=== PATIENT | male | born 1970 | race Caucasian/White ===

== ENCOUNTER 2017-12-17 14:06 | Inpatient (IN) | payer MEDICAID ==
[~2017-12-17] VITALS: Ht 175.3 cm; Wt 78.6 kg
[2017-12-17 14:23] LABS: BASOPHILS 0.2 % (0-2); EOSINOPHILS 0.5 % (0-7); HEMATOCRIT 43.2 % (42.0-54.0); HEMOGLOBIN 15.3 g/dL (13.5-17.5); IMMATURE GRANULOCYTES 0.3 % (0-5); LYMPHOCYTES 33.3 % (15-50); MCH 34.4 pg (26.0-34.0); MCHC 35.4 g/dL (31.0-37.0); MCV 97.1 fL (80.0-100.0); MEAN PLATELET VOLUME 9.2 fL (7.4-10.4); MONOCYTES 8.6 % (2-11); NEUTROPHILS 57.1 % (40-80); PLATELET COUNT 356 10x3/uL (130-400); RBC 4.45 10x6/uL (4.20-6.10); RDW 12.5 % (11.5-14.5); WBC 18.5 10x3/uL (4.8-10.8)
[2017-12-17 14:41] LABS: ALBUMIN 3.7 g/dL (3.4-5.0); ALKALINE PHOSPHATASE 69 U/L (46-116); ALT (SGPT) 23 U/L (10-68); CALC OSMOLALITY 270 mosm/kg (275-300); CALCIUM 8.9 mg/dL (8.5-10.1); CARBON DIOXIDE 27.4 mmol/L (21.0-32.0); CHLORIDE - SERUM 99 mmol/L (98-107); GLUCOSE 126 mg/dL (74-106); POTASSIUM - SERUM 3.8 mmol/L (3.5-5.1); PROTEIN - SERUM 7.5 g/dL (6.4-8.2); SODIUM 135 mmol/L (136-145); UREA NITROGEN 10 mg/dL (7-18); eGFR NON AFRICAN AMERICAN 84 mL/min (90-120)
[2017-12-17 14:57] LABS: CHOLESTEROL, TOTAL 148 mg/dL (0-200); CKMB 0.6 U/L (0.0-3.6); CREATINE KINASE 56 UL (21-232); HDL CHOLESTEROL 49 mg/dL (32-96); LDL CHOLESTEROL 86 mg/dL (0-100); LDL-HDL RATIO 1.8 ratio (1.5-3.5); TRIGLYCERIDE 67 mg/dL (30-200); TROPONIN-I < 0.017 ng/mL (0.000-0.060)
[2017-12-17 15:38] LABS: APTT 34.6 SECONDS (22.8-39.4); INR 1.03 (0.85-1.17); PROTIME 13.1 SECONDS (11.6-15.0)
[2017-12-17 15:39] LABS: D-DIMER-QUANTITATIVE < 0.27 ug/mLFEU (0.20-0.54)
[2017-12-17 21:35] VITALS: BP 117/68; BMI 25.9
[2017-12-17 23:49] VITALS: BP 117/68
[2017-12-18 04:20] VITALS: BP 111/60
[2017-12-18 05:07] LABS: BASOPHILS 0.2 % (0-2); EOSINOPHILS 1.1 % (0-7); HEMATOCRIT 37.2 % (42.0-54.0); HEMOGLOBIN 12.7 g/dL (13.5-17.5); IMMATURE GRANULOCYTES 0.2 % (0-5); LYMPHOCYTES 31.5 % (15-50); MCH 33.4 pg (26.0-34.0); MCHC 34.1 g/dL (31.0-37.0); MCV 97.9 fL (80.0-100.0); MEAN PLATELET VOLUME 9.6 fL (7.4-10.4); MONOCYTES 14.1 % (2-11); NEUTROPHILS 52.9 % (40-80); PLATELET COUNT 350 10x3/uL (130-400); RDW 12.6 % (11.5-14.5); WBC 16.4 10x3/uL (4.8-10.8)
[2017-12-18 05:21] LABS: ALBUMIN 2.8 g/dL (3.4-5.0); ALKALINE PHOSPHATASE 64 U/L (46-116); ALT (SGPT) 23 U/L (10-68); BILIRUBIN - TOTAL 0.46 mg/dL (0.2-1.3); CALCIUM 8.1 mg/dL (8.5-10.1); CARBON DIOXIDE 23.8 mmol/L (21.0-32.0); CHLORIDE - SERUM 106 mmol/L (98-107); GLUCOSE 100 mg/dL (74-106); POTASSIUM - SERUM 3.7 mmol/L (3.5-5.1); PROTEIN - SERUM 6.1 g/dL (6.4-8.2); SODIUM 141 mmol/L (136-145); eGFR NON AFRICAN AMERICAN 84 mL/min (90-120)
[2017-12-18 05:31] LABS: CALC OSMOLALITY 281 mosm/kg (275-300); UREA NITROGEN 16 mg/dL (7-18)
[2017-12-18 08:00] VITALS: BP 111/64
[2017-12-18 11:54] VITALS: BP 117/68
[2017-12-18 14:45] LABS: CKMB 0.5 U/L (0.0-3.6); CREATINE KINASE 37 UL (21-232); PRO BNP 210 pg/mL (0-125)
[2017-12-18 14:54] LABS: TROPONIN-I < 0.017 ng/mL (0.000-0.060)
[2017-12-18 15:31] VITALS: BP 117/81
[2017-12-18 20:00] VITALS: BP 123/70
[2017-12-18 20:23] LABS: CKMB 0.5 U/L (0.0-3.6); CREATINE KINASE 38 UL (21-232)
[2017-12-18 20:24] LABS: TROPONIN-I < 0.017 ng/mL (0.000-0.060)
[2017-12-19] VITALS (7 sets, daily range): BP systolic 93–172; BP diastolic 53–85
[2017-12-19 01:29] LABS: CKMB 0.6 U/L (0.0-3.6); CREATINE KINASE 45 UL (21-232); TROPONIN-I < 0.017 ng/mL (0.000-0.060)
[2017-12-19 06:15] LABS: BASOPHILS 0.2 % (0-2); HEMATOCRIT 33.7 % (42.0-54.0); HEMOGLOBIN 11.5 g/dL (13.5-17.5); IMMATURE GRANULOCYTES 0.2 % (0-5); LYMPHOCYTES 33.3 % (15-50); MCH 33.3 pg (26.0-34.0); MCHC 34.1 g/dL (31.0-37.0); MCV 97.7 fL (80.0-100.0); MEAN PLATELET VOLUME 9.1 fL (7.4-10.4); MONOCYTES 10.5 % (2-11); NEUTROPHILS 53.8 % (40-80); PLATELET COUNT 324 10x3/uL (130-400); RBC 3.45 10x6/uL (4.20-6.10); RDW 12.6 % (11.5-14.5); WBC 12.8 10x3/uL (4.8-10.8)
[2017-12-19 06:46] LABS: % SATURATION 24 % (15-55); IRON 36 ug/dl (35-150); TOTAL IRON BIND CAPACITY 146 ug/dl (260-445); UNSAT IRON BIND CAPACITY 110 ug/dl (150-375)
[2017-12-19 06:58] LABS: ALBUMIN 2.6 g/dL (3.4-5.0); ALKALINE PHOSPHATASE 53 U/L (46-116); ALT (SGPT) 24 U/L (10-68); BILIRUBIN - TOTAL 0.53 mg/dL (0.2-1.3); CALC OSMOLALITY 282 mosm/kg (275-300); CALCIUM 7.8 mg/dL (8.5-10.1); CARBON DIOXIDE 25.1 mmol/L (21.0-32.0); CHLORIDE - SERUM 108 mmol/L (98-107); CREATININE - SERUM 0.8 mg/dL (0.6-1.3); FERRITIN 251 ng/mL (3-244); GLUCOSE 104 mg/dL (74-106); POTASSIUM - SERUM 3.6 mmol/L (3.5-5.1); PROTEIN - SERUM 5.8 g/dL (6.4-8.2); SODIUM 143 mmol/L (136-145); UREA NITROGEN 7 mg/dL (7-18); eGFR NON AFRICAN AMERICAN > 90 mL/min (90-120)
[2017-12-20 04:05] VITALS: BP 106/54
[2017-12-20 04:33] LABS: BASOPHILS 0.4 % (0-2); EOSINOPHILS 5.2 % (0-7); HEMATOCRIT 32.6 % (42.0-54.0); HEMOGLOBIN 10.9 g/dL (13.5-17.5); IMMATURE GRANULOCYTES 0.1 % (0-5); MCH 32.8 pg (26.0-34.0); MCHC 33.4 g/dL (31.0-37.0); MCV 98.2 fL (80.0-100.0); MEAN PLATELET VOLUME 9.1 fL (7.4-10.4); MONOCYTES 10.3 % (2-11); PLATELET COUNT 338 10x3/uL (130-400); RBC 3.32 10x6/uL (4.20-6.10); RDW 12.8 % (11.5-14.5); WBC 9.9 10x3/uL (4.8-10.8)
[2017-12-20 04:50] LABS: ALBUMIN 2.4 g/dL (3.4-5.0); ALKALINE PHOSPHATASE 53 U/L (46-116); CALC OSMOLALITY 290 mosm/kg (275-300); CHLORIDE - SERUM 112 mmol/L (98-107); CREATININE - SERUM 0.8 mg/dL (0.6-1.3); GLUCOSE 136 mg/dL (74-106); POTASSIUM - SERUM 3.1 mmol/L (3.5-5.1); PROTEIN - SERUM 5.4 g/dL (6.4-8.2); SODIUM 146 mmol/L (136-145); UREA NITROGEN 6 mg/dL (7-18); eGFR NON AFRICAN AMERICAN > 90 mL/min (90-120)
[2017-12-20 04:51] LABS: ALT (SGPT) 31 U/L (10-68)
[2017-12-20 07:54] VITALS: BP 121/67
[2017-12-20 16:26] VITALS: BP 137/78
[2017-12-20 21:52] VITALS: BP 130/76
[2017-12-21] VITALS (8 sets, daily range): BP systolic 103–134; BP diastolic 52–74
[2017-12-21 04:37] LABS: BASOPHILS 0.5 % (0-2); EOSINOPHILS 7.4 % (0-7); HEMATOCRIT 34.7 % (42.0-54.0); HEMOGLOBIN 11.6 g/dL (13.5-17.5); IMMATURE GRANULOCYTES 0.1 % (0-5); LYMPHOCYTES 38.9 % (15-50); MCHC 33.4 g/dL (31.0-37.0); MCV 98.9 fL (80.0-100.0); MEAN PLATELET VOLUME 9.1 fL (7.4-10.4); MONOCYTES 8.9 % (2-11); NEUTROPHILS 44.2 % (40-80); PLATELET COUNT 401 10x3/uL (130-400); RBC 3.51 10x6/uL (4.20-6.10); RDW 13.1 % (11.5-14.5); WBC 8.9 10x3/uL (4.8-10.8)
[2017-12-21 04:45] LABS: INR 1.13 (0.85-1.17)
[2017-12-21 04:46] LABS: APTT 38.7 SECONDS (22.8-39.4)
[2017-12-21 05:00] LABS: ALBUMIN 2.5 g/dL (3.4-5.0); ALKALINE PHOSPHATASE 53 U/L (46-116); ALT (SGPT) 33 U/L (10-68); BILIRUBIN - TOTAL 0.37 mg/dL (0.2-1.3); CALC OSMOLALITY 284 mosm/kg (275-300); CALCIUM 7.9 mg/dL (8.5-10.1); CARBON DIOXIDE 25.1 mmol/L (21.0-32.0); CHLORIDE - SERUM 109 mmol/L (98-107); GLUCOSE 105 mg/dL (74-106); POTASSIUM - SERUM 3.6 mmol/L (3.5-5.1); PROTEIN - SERUM 5.7 g/dL (6.4-8.2); SODIUM 144 mmol/L (136-145); UREA NITROGEN 6 mg/dL (7-18); eGFR NON AFRICAN AMERICAN 84 mL/min (90-120)
[2017-12-22] VITALS (7 sets, daily range): BP systolic 111–148; BP diastolic 68–85
[2017-12-22 06:26] LABS: BASOPHILS 0.1 % (0-2); EOSINOPHILS 0.1 % (0-7); HEMATOCRIT 36.1 % (42.0-54.0); HEMOGLOBIN 11.9 g/dL (13.5-17.5); IMMATURE GRANULOCYTES 0.1 % (0-5); LYMPHOCYTES 15.2 % (15-50); MCH 33.1 pg (26.0-34.0); MCV 100.3 fL (80.0-100.0); MEAN PLATELET VOLUME 8.9 fL (7.4-10.4); MONOCYTES 2.5 % (2-11); PLATELET COUNT 440 10x3/uL (130-400)
[2017-12-22 06:27] LABS: WBC 14.9 10x3/uL (4.8-10.8)
[2017-12-22 07:03] LABS: ALBUMIN 2.6 g/dL (3.4-5.0); ALKALINE PHOSPHATASE 60 U/L (46-116); ALT (SGPT) 31 U/L (10-68); BILIRUBIN - TOTAL 0.22 mg/dL (0.2-1.3); CALC OSMOLALITY 286 mosm/kg (275-300); CALCIUM 8.3 mg/dL (8.5-10.1); CARBON DIOXIDE 26.5 mmol/L (21.0-32.0); CHLORIDE - SERUM 107 mmol/L (98-107); CREATININE - SERUM 0.9 mg/dL (0.6-1.3); GLUCOSE 152 mg/dL (74-106); POTASSIUM - SERUM 3.8 mmol/L (3.5-5.1); PROTEIN - SERUM 5.8 g/dL (6.4-8.2); SODIUM 143 mmol/L (136-145); eGFR NON AFRICAN AMERICAN > 90 mL/min (90-120)
[2017-12-22 07:05] LABS: UREA NITROGEN 11 mg/dL (7-18)
[2017-12-23 04:30] VITALS: BP 112/69
[2017-12-23 05:37] LABS: BASOPHILS 0.3 % (0-2); EOSINOPHILS 8.7 % (0-7); HEMATOCRIT 34.3 % (42.0-54.0); HEMOGLOBIN 11.4 g/dL (13.5-17.5); IMMATURE GRANULOCYTES 0.3 % (0-5); LYMPHOCYTES 39.6 % (15-50); MCH 32.9 pg (26.0-34.0); MCHC 33.2 g/dL (31.0-37.0); MCV 99.1 fL (80.0-100.0); MEAN PLATELET VOLUME 9.1 fL (7.4-10.4); NEUTROPHILS 44.1 % (40-80); PLATELET COUNT 445 10x3/uL (130-400); RBC 3.46 10x6/uL (4.20-6.10); RDW 13.3 % (11.5-14.5)
[2017-12-23 05:59] LABS: WBC 10.8 10x3/uL (4.8-10.8)
[2017-12-23 06:09] LABS: ALBUMIN 2.6 g/dL (3.4-5.0); ALKALINE PHOSPHATASE 53 U/L (46-116); ALT (SGPT) 33 U/L (10-68); CALC OSMOLALITY 285 mosm/kg (275-300); CARBON DIOXIDE 27.1 mmol/L (21.0-32.0); CHLORIDE - SERUM 107 mmol/L (98-107); CREATININE - SERUM 0.9 mg/dL (0.6-1.3); POTASSIUM - SERUM 3.6 mmol/L (3.5-5.1); PROTEIN - SERUM 5.7 g/dL (6.4-8.2); SODIUM 144 mmol/L (136-145); UREA NITROGEN 11 mg/dL (7-18); eGFR NON AFRICAN AMERICAN > 90 mL/min (90-120)
[2017-12-23 06:18] LABS: GLUCOSE 99 mg/dL (74-106)
[2017-12-23 08:04] LABS: APPEARANCE CLEAR (CLEAR); BILIRUBIN NEGATIVE (NEGATIVE); COLOR YELLOW (YELLOW); GLUCOSE NEGATIVE (NEGATIVE); KETONE NEGATIVE (NEGATIVE); NITRITE NEGATIVE (NEGATIVE); PROTEIN NEGATIVE (NEGATIVE); SPECIFIC GRAVITY 1.015 (1.005-1.020); UROBILINOGEN NORMAL (NORMAL)
[2017-12-23 08:18] VITALS: BP 121/75
[2017-12-23 12:44] VITALS: BP 119/72
[2017-12-23 18:10] LABS: AFB SPECIMEN PROCESSING Concentration (())
[2017-12-23 19:24] VITALS: Ht 175.3 cm; Wt 78.6 kg
[2017-12-23 20:58] VITALS: BP 153/84
[2017-12-24 05:03] VITALS: BP 134/48
[2017-12-24 08:16] VITALS: BP 119/71
[2017-12-24 12:12] VITALS: BP 121/75
[2017-12-24 13:18] LABS: FUNGUS STAIN Final report (())
[2017-12-24 20:02] VITALS: BP 108/67
[2017-12-25 00:27] VITALS: BP 115/61
[2017-12-25 04:17] VITALS: BP 122/73
[2017-12-25 05:12] LABS: BASOPHILS 0.2 % (0-2); EOSINOPHILS 6.1 % (0-7); HEMATOCRIT 35.4 % (42.0-54.0); HEMOGLOBIN 11.7 g/dL (13.5-17.5); IMMATURE GRANULOCYTES 0.7 % (0-5); LYMPHOCYTES 32.9 % (15-50); MCH 32.7 pg (26.0-34.0); MCHC 33.1 g/dL (31.0-37.0); MCV 98.9 fL (80.0-100.0); MEAN PLATELET VOLUME 8.7 fL (7.4-10.4); MONOCYTES 7.3 % (2-11); NEUTROPHILS 52.8 % (40-80); PLATELET COUNT 466 10x3/uL (130-400); RBC 3.58 10x6/uL (4.20-6.10); RDW 13.1 % (11.5-14.5); WBC 13.9 10x3/uL (4.8-10.8)
[2017-12-25 05:36] LABS: CALC OSMOLALITY 285 mosm/kg (275-300); CALCIUM 8.3 mg/dL (8.5-10.1); CARBON DIOXIDE 26.4 mmol/L (21.0-32.0); CHLORIDE - SERUM 107 mmol/L (98-107); CREATININE - SERUM 0.8 mg/dL (0.6-1.3); GLUCOSE 124 mg/dL (74-106); POTASSIUM - SERUM 3.6 mmol/L (3.5-5.1); SODIUM 143 mmol/L (136-145); UREA NITROGEN 13 mg/dL (7-18); eGFR NON AFRICAN AMERICAN > 90 mL/min (90-120)
[2017-12-25 08:10] VITALS: BP 127/77
[2017-12-25 09:12] LABS: IMMUNOGLOBULIN E 94 IU/mL (0-100)
[2017-12-25 12:08] VITALS: BP 120/71
[2017-12-25] MEDS ORDERED: NICODERM C1 PATCH .1 TRANSDERM (14:08)
[2017-12-25] MEDS ORDERED: PULMICORT0.5 MG/21 UPD (14:08)
[2017-12-25] MEDS ORDERED: PREDNISONE20 MG PO (14:09)
[2017-12-25] MEDS ORDERED: ADVAIR 250/501 DISK INH (14:09)
[2017-12-25 16:17] VITALS: BP 118/72
[2018-01-19 10:19] LABS: FUNGUS MYCOLOGY CULTURE Final report (())
[2018-02-14 18:09] LABS: ACID FAST CULTURE Negative (()); ACID FAST SMEAR Negative (())
== END 2017-12-25 17:00 | disposition home or self-care (01) | DRG 180 ==
LOC: D.ER 14:06 → D.EDHOLD 19:54 → D.MS 19:54
PROVIDERS: Family Medicine; Internal Medicine Nephrology; Internal Medicine Pulmonary Disease
PROC: 0B998ZX Drainage of Lingula Bronchus, Via Natural or Artificial Opening Endoscopic, Diagnostic (ICD-10-PCS; 2017-12-21)
PROC: 0BD98ZX Extraction of Lingula Bronchus, Via Natural or Artificial Opening Endoscopic, Diagnostic (ICD-10-PCS; principal; 2017-12-21 11:00)
DX: C34.12 Malignant neoplasm of upper lobe, left bronchus or lung (principal); J18.1 Lobar pneumonia, unspecified organism; E87.1 Hypo-osmolality and hyponatremia; F17.203 Nicotine dependence unspecified, with withdrawal; C79.51 Secondary malignant neoplasm of bone; R91.1 Solitary pulmonary nodule; J43.9 Emphysema, unspecified; R09.1 Pleurisy; J30.9 Allergic rhinitis, unspecified; Z77.090 Contact with and (suspected) exposure to asbestos; K21.9 Gastro-esophageal reflux disease without esophagitis; D64.9 Anemia, unspecified; E83.51 Hypocalcemia; I95.9 Hypotension, unspecified; E87.6 Hypokalemia; R07.9 Chest pain, unspecified; D72.1 Eosinophilia; L27.0 Generalized skin eruption due to drugs and medicaments taken internally; T48.3X5A Adverse effect of antitussives, initial encounter; T46.1X5A Adverse effect of calcium-channel blockers, initial encounter; T36.0X5A Adverse effect of penicillins, initial encounter

== ENCOUNTER → 2018-02-17 08:38 | Outpatient (CLI) | payer MEDICAID ==
[2017-12-23 19:24] VITALS: BMI 25.9
[~2018-02-17 08:38] MED LIST: ADVAIR 250/501 DISK INH; NICODERM C1 PATCH .1 TRANSDERM; PREDNISONE20 MG PO; PULMICORT0.5 MG/21 UPD
== END | disposition home or self-care (01) ==
LOC: D.RT 08:38
DX: C34.90 Malignant neoplasm of unspecified part of unspecified bronchus or lung (principal)

== ENCOUNTER 2020-02-23 14:08 | Outpatient (CLI) | payer MEDICAID ==
[2017-12-23 19:24] VITALS: BMI 25.9
--- NOTE | 2020-02-23 16:39 | NUR ---
PICC PLACED. D/C`D HOME VIA WHEELCHAIR WITH FAMILY. NO CONCERNS.
== END 2020-02-23 17:00 | disposition home or self-care (01) ==
LOC: D.OPS 14:08 → D.MS 16:00 → UNDOADMIN 16:00 → D.MS 16:40 → D.OPS 17:00 → EDSTATUS 17:26
PROVIDERS: ATTEND Family Medicine
DX: Z85.110 Personal history of malignant carcinoid tumor of bronchus and lung (principal)

== ENCOUNTER 2020-02-25 20:20 | Inpatient (IN) | payer MEDICAID ==
[~2020-02-25] VITALS: Ht 175.3 cm; Wt 72.0 kg
--- NOTE | ~2020-02-25 | EC ---
PATIENT:KENNEDY MCCRARY DATE OF SERVICE: 02/26/20 SEX: M MEDICAL RECORD: [id number] DATE OF : [birth year] LOCATION:[place] [address] AGE OF PATIENT: 49 ADMISSION DATE: 02/26/20 REFERRING PHYSICIAN: INTERPRETING PHYSICIAN: ROMEO ERWIN MD ECHOCARDIOGRAM REPORT ECHO CHARGES 4 ECHO COMPLETE Date: 03/01/20 CLINICAL DIAGNOSIS: ATRIAL FIB ECHOCARDIOGRAPHIC MEASUREMENTS (adult normal given) AC root (d.<3.7cm) 3.9 cm LV Septum d (<1.2 cm> 1.5 cm Valve Excursion 1.5 cm LV Septum (systole) 1.6 cm Left Atria (s.<4.0cm> 3.4 cm LVPW d(<1.2cm) 1.8 cm RV (d.<2.3cm) 3.5 cm LVPW (sytole) 2.0 cm LV diastole(<5.6CM) 5.1 cm MV E-F(>70mm/sec) cm LV systole 3.5 cm LVOT Diameter 2.0 cm MV exc.(>10mm) 1.4 cm Est.ejection fraction (50-75%) % DOPPLER: LVIT cm/sec A 51.0 cm/sec E 80.0 cm/sec LA cm/sec RVSP 17 mmHg LVOT 75.0 cm/sec AOP1/2T m/s Asc. Ao 119 cm/sec RVOT 73 cm/sec RA cm/sec PA 133 cm/sec AV Gradient Peak 5.65 mmHg AV Mean 3.25 mmHg AV Area 2.2 cm MV Gradient Peak 3.75 mmHg MV Mean 1.48 mmHg MV Area cm COMMENTS: Cash Register Operator: 2 EVGENY CAMACHO Soda Dispenser: 3 Dr. Leigh TAPE# PACS Pericardial Effusion N DATE OF SERVICE: Adequate 2D, color flow imaging, spectral Doppler and M-mode. LVH is present. LV internal dimension is normal. Wall motion is normal. EF is greater than or equal to 55%. Aortic valve is tricuspid. No evidence of stenosis by Doppler interrogation. Left atrium is normal. Mitral valve shows no prolapse. Trace MR. Right-sided chamber is grossly normal. Trace TR. TRANSINT:[id number] Voice Confirmation ID: [id number] DOCUMENT ID: [id number] ECHOCARDIOGRAM REPORT [id number] KENNEDY MCCRARY GREGORY A MD CC: [id number] DICTATION DATE: 03/01/20 1346 COUNTER FORMER: 03/01/20 2210 ADM IN [place] [id number] [place] [id number]
[2020-02-25 20:34] LABS: BASOPHILS 0.3 % (0-2); EOSINOPHILS 1.5 % (0-7); HEMATOCRIT 42.1 % (42.0-54.0); IMMATURE GRANULOCYTES 0.3 % (0-5); LYMPHOCYTES 18.7 % (15-50); MCH 30.8 pg (26.0-34.0); MCHC 33.3 g/dL (31.0-37.0); MCV 92.5 fL (80.0-100.0); MEAN PLATELET VOLUME 9.7 fL (7.4-10.4); MONOCYTES 9.1 % (2-11); NEUTROPHILS 70.1 % (40-80); PLATELET COUNT 797 10x3/uL (130-400); RBC 4.55 10x6/uL (4.20-6.10); RDW 13.3 % (11.5-14.5); WBC 17.9 10x3/uL (4.8-10.8)
[2020-02-25] MEDS ORDERED: KADIAN100 MG PO (20:34)
[2020-02-25] MEDS ORDERED: ZOFRAN4 MG PO (20:35)
[2020-02-25] MEDS ORDERED: ATIVAN0.5 MG PO (20:35)
[2020-02-25] MEDS ORDERED: CYPROHEPTAD2 MG/5 ML PO (20:36)
[2020-02-25 20:40] VITALS: BP 90/61
[2020-02-25 20:40] LABS: APTT 29.7 SECONDS (22.8-39.4); INR 1.14 (0.85-1.17); PROTIME 14.6 SECONDS (11.6-15.0)
[2020-02-25 20:41] LABS: D-DIMER-QUANTITATIVE 0.36 ug/mLFEU (0.20-0.54)
[2020-02-25 20:48] LABS: GLUCOSE 159 mg/dL (74-106); UREA NITROGEN 16 mg/dL (7-18)
[2020-02-25 21:00] VITALS: BP 98/59
[2020-02-25 21:28] LABS: ALBUMIN 3.2 g/dL (3.4-5.0); ALKALINE PHOSPHATASE 136 U/L (30-120); ALT (SGPT) 29 U/L (10-68); BILIRUBIN - TOTAL 0.98 mg/dL (0.2-1.3); CHLORIDE - SERUM 87 mmol/L (98-107); CKMB 1.1 U/L (0.0-3.6); CREATINE KINASE 75 UL (21-232); CREATININE - SERUM 1.4 mg/dL (0.6-1.3); PRO BNP 2437 pg/mL (0-125); PROTEIN - SERUM 7.5 g/dL (6.4-8.2); eGFR NON AFRICAN AMERICAN 57 mL/min (90-120)
[2020-02-25 21:29] LABS: CALC OSMOLALITY 269 mosm/kg (275-300); LIPASE 34 U/L (73-393); POTASSIUM - SERUM 3.8 mmol/L (3.5-5.1); SODIUM 133 mmol/L (136-145); TROPONIN-I < 0.017 ng/mL (0.000-0.060)
[2020-02-25 21:30] LABS: CALCIUM 13.4 mg/dL (8.5-10.1)
[2020-02-25 21:46] LABS: UDS - AMPHET NEGATIVE QUAL (NEGATIVE); UDS - BARB NEGATIVE QUAL (NEGATIVE); UDS - BENZO NEGATIVE QUAL (NEGATIVE); UDS - COCAINE NEGATIVE QUAL (NEGATIVE); UDS - OPIATE POSITIVE QUAL (NEGATIVE); UDS - PCP NEGATIVE QUAL (NEGATIVE); UDS - THC POSITIVE QUAL (NEGATIVE)
[2020-02-25 21:47] LABS: BILIRUBIN NEGATIVE (NEGATIVE); GLUCOSE NEGATIVE (NEGATIVE); KETONE LARGE mg/dL (NEGATIVE); NITRITE NEGATIVE (NEGATIVE); SPECIFIC GRAVITY 1.025 (1.005-1.020); UROBILINOGEN NORMAL (NORMAL)
--- NOTE | 2020-02-25 21:50 | NUR ---
PT CONVERTED FROM A-FIB W/RVR TO SINUS RHYTHM.
--- NOTE | 2020-02-25 21:55 | NUR ---
CARDIZEM INFUSION STOPPED PER ORDER OF DR. MARTINEZ.
[2020-02-26] VITALS (23 sets, daily range): BP systolic 90–127; BP diastolic 56–84; BMI 21.6; BMI 22.0
[2020-02-26 01:47] LABS: BASOPHILS 0.2 % (0-2); EOSINOPHILS 0.8 % (0-7); HEMATOCRIT 39.3 % (42.0-54.0); HEMOGLOBIN 12.6 g/dL (13.5-17.5); IMMATURE GRANULOCYTES 0.4 % (0-5); LYMPHOCYTES 20.2 % (15-50); MCH 30.2 pg (26.0-34.0); MCHC 32.1 g/dL (31.0-37.0); MCV 94.2 fL (80.0-100.0); MEAN PLATELET VOLUME 9.2 fL (7.4-10.4); MONOCYTES 9.5 % (2-11); NEUTROPHILS 68.9 % (40-80); PLATELET COUNT 751 10x3/uL (130-400); RBC 4.17 10x6/uL (4.20-6.10); RDW 13.3 % (11.5-14.5); WBC 19.2 10x3/uL (4.8-10.8)
[2020-02-26 02:04] LABS: CKMB 1.9 U/L (0.0-3.6); CREATINE KINASE 24 UL (21-232)
--- NOTE | 2020-02-26 02:25 | NUR ---
PT ARRIVED VIA STRETCHER FROM ER, ER NURSE WITH PATIENT. ASSESSMENT COMPLETED. O2 AT 2L VIA NC. PT ALERT, CONFUSED TO TIME, STATED IT WAS 2009. PT TALKS WITH A WHISPER. ABLE TO SLIDE ON OWN FROM STRETCHER TO BED ON OWN. NORMAL SINUS AT 69. DIMINISHED LUNG SOUNDS TO ENTIRE RIGHT LUNG AND BILATERAL BASES. C/O PAIN AT A 2/10. CALL LIGHT IN REACH
--- NOTE | 2020-02-26 04:00 | NUR ---
EYES CLOSED, EASILY WAKES. DENIES ANY NEEDS
--- NOTE | 2020-02-26 05:06 | NUR ---
EYES CLOSED, EASILY WAKES. DENIES ANY NEEDS. INDEPENDENT WITH REPOSTIONING.
--- NOTE | 2020-02-26 07:00 | NUR ---
PT REPORT RECEIVED FROM INSIDE B2B SALES NURSE. NO ACUTE SIGNS OF DISTRESS NOTED. PT RESTING IN BED. SHIFT ASSESSMENT COMPLETED. WILL CONTINUE TO MONITOR
[2020-02-26 08:44] LABS: ALBUMIN 2.6 g/dL (3.4-5.0); ALKALINE PHOSPHATASE 107 U/L (30-120); BILIRUBIN - TOTAL 0.51 mg/dL (0.2-1.3); CARBON DIOXIDE 39.4 mmol/L (21.0-32.0); CHLORIDE - SERUM 92 mmol/L (98-107); CKMB 2.6 U/L (0.0-3.6); CREATINE KINASE 19 UL (21-232); CREATININE - SERUM 1.1 mg/dL (0.6-1.3); SODIUM 135 mmol/L (136-145); TROPONIN-I 0.034 ng/mL (0.000-0.060); UREA NITROGEN 15 mg/dL (7-18); eGFR NON AFRICAN AMERICAN 75 mL/min (90-120)
[2020-02-26 08:45] LABS: ALT (SGPT) 20 U/L (10-68); CALC OSMOLALITY 271 mosm/kg (275-300); GLUCOSE 108 mg/dL (74-106)
[2020-02-26 08:46] LABS: CALCIUM 12.6 mg/dL (8.5-10.1); POTASSIUM - SERUM 2.6 mmol/L (3.5-5.1)
--- NOTE | 2020-02-26 09:53 | NUR ---
SPOKE WITH DR AGUILAR CONCERNING CARDIZEM DRIP AND POTASSIUM. ORDER RECEIVED TO HOLD CARDIZEM AND START PT ON ELECTROLYTE PROTOCOL. WILL CONTINUE TO MONITOR
--- NOTE | 2020-02-26 10:41 | NUR ---
DR AGUILAR IN ROOM. UPDATE GIVEN. NO NEW ORDERS. WILL CONTINUE TO MONITOR
--- NOTE | 2020-02-26 12:30 | NUR ---
DR AGUILAR IN ROOM. WANTS PT TO HAVE NG TUBE. PT GAVE CONSENT.
--- NOTE | 2020-02-26 14:50 | NUR ---
PT TAKEN TO CT TO DO CT SCAN OF FACIAL BONES. WILL CONTINUE TO MONITOR
--- NOTE | 2020-02-26 15:24 | NUR ---
Nutrition consult: Received verbal order from Dr. Boyce to start Osmolite 1.0 kia after NGT placed. Osmolite 1.0 kia ordered to start @ 5 ml/hr with very slow increase to goal rate of 50 ml/hr with 100 H2O flush Q 4 hours. HOB > 30 degrees Thank you for the consult. RDN following.
--- NOTE | 2020-02-26 15:30 | NUR ---
PT RETURNED WITH NG TUBE IN PLACE. WILL CONTINUE TO MONITOR
--- NOTE | 2020-02-26 16:54 | NUR ---
TUBE FEEDING STARTED AT 5ML/HR. WILL CONTINUE TO MONITOR
--- NOTE | 2020-02-26 20:46 | MORECARE ---
CASE MANAGEMENT DISCHARGE SUMMARY PATIENT: KENNEDY MCCRARY UNIT: [id number] ADM DATE: 02/26/20 AGE: 49 : [birth year] SEX: M ROOM/BED: D.2309 AUTHOR: BRANDO STEELE PHYSICIAN: REFERRING PHYSICIAN: BRADLY BELL MD DATE OF SERVICE: 02/26/20 Discharge Plan Patient Name: KENNEDY MCCRARY [facility] [facility] 1970 Planned Disposition: Home Anticipated Discharge Date: Discharge Date: Expected LOS: Initial Reviewer: [email or web address] Initial Review Date: 02/26/2020 Generated: 02/26/20 9:46 pm DCPIA - Discharge Planning Initial Assessment Updated by [email or web address]: Vaishnavi Engel on 02/26/20 8:45 pm * Is the patient Alert and Oriented? Yes * How many steps to enter\exit or inside your home? * PCP MEREDITH BANGURA * Pharmacy [facility] * Preadmission Environment Home with Family * ADLs Independent * Other Equipment CANE, NEBULIZER, SHOWER CHAIR * List name and contact numbers for known caregivers / representatives who currently or will assist patient after discharge: JEANNE MCCRARY - [facility] - [phone] * Verbal permission to speak to the caregivers and representatives has been obtained from the patient. Yes * Community resources currently utilized None * Additional services required to return to the preadmission environment? No * Can the patient safely return to the preadmission environment? Yes * Has this patient been hospitalized within the prior 30 days at any hospital? No Patient Name: KENNEDY MCCRARY Page [id number] at 204 All edits/amendments must be made on the electronic document DICTATION DATE: 02/26/202045 HAND DEICER ELEMENT WINDER: RAÚL 02/26/202045 RPT#: [id number] DC DATE: STATUS: ADM IN [facility] [address] [place] [address] END OF REPORT
--- NOTE | 2020-02-26 20:54 | MORECARE ---
CASE MANAGEMENT DISCHARGE SUMMARY PATIENT: KENNEDY MCCRARY UNIT: [id number] ADM DATE: 02/26/20 AGE: 49 : [birth year] SEX: M ROOM/BED: D.2309 AUTHOR: IVETTEDOC PHYSICIAN: REFERRING PHYSICIAN: BRADLY BELL MD DATE OF SERVICE: 02/26/20 Discharge Plan Patient Name: KENNEDY MCCRARY Facility: [facility]:[place] : 1970 Planned Disposition: Home Anticipated Discharge Date: Discharge Date: Expected LOS: Initial Reviewer: [email or web address] Initial Review Date: 02/26/2020 Generated: 02/26/20 9:53 pm Comments DCP- Discharge Planning Updated by [email or web address]: Vaishnavi Engel on 02/26/20 7:[address] Patient Name: KENNEDY MCCRARY Admission Status: ER Accout number: [id number] Admission Date: 02-26-2020 : 1970 Admission Diagnosis: Attending: BRADLY BELL Current LOS: 1 Anticipated DC Date: Planned Disposition: Home Primary Insurance: MEDICAID [place] Discharge Planning Comments: CM met with patient to complete initial dc planning assessment. CM educated patient on the CM role and verbal consent given by patient to complete assessment. Patient lives at home with family. Patient is independent. At discharge patient plans to return home and feels this is a safe discharge. CM discussed availability of home health, rehab services, and medical equipment. Patient feel like he needs home 02 and a hospital bed upon discharge. Request [facility] for DME. Patient will have family to transport home. CM will continue to follow and will assist as needed with dc plans/needs. Camera Mechanic: Vaishnavi Engel DCPIA - Discharge Planning Initial Assessment Updated by [email or web address]: Vaishnavi Engel on 02/26/20 8:45 pm * Is the patient Alert and Oriented? Yes * How many steps to enter\exit or inside your home? * PCP MEREDITH BANGURA * Pharmacy [facility] * Preadmission Environment Home with Family * ADLs Independent * Other Equipment CANE, NEBULIZER, SHOWER CHAIR * List name and contact numbers for known caregivers / representatives who currently or will assist patient after discharge: JEANNEJacqueline MCCRARY - [facility] - [phone] * Verbal permission to speak to the caregivers and representatives has been obtained from the patient. Yes * Community resources currently utilized None * Additional services required to return to the preadmission environment? No * Can the patient safely return to the preadmission environment? Yes * Has this patient been hospitalized within the prior 30 days at any hospital? No Last DP export: 02/26/20 7:46 p Patient Name: KENNEDY MCCRARY Page 95160 at 2054 All edits/amendments must be made on the electronic document DICTATION DATE: 02/26/202052 INDUSTRIAL EQUIPMENT WIRER: RAÚL 02/26/202052 RPT#: [id number] [place] DATE: STATUS: ADM IN [facility] [address] [place] [address] END OF REPORT
[2020-02-27] VITALS (22 sets, daily range): BP systolic 97–128; BP diastolic 65–94
--- NOTE | 2020-02-27 10:40 | NUR ---
DOBHOFF PLACED. VERIFIED BY XRAY. FLOTATION TENDER CONSULTED. ORDER RECEIVED TO START TUBE FEEDINGS AT 5ML/HR.
[2020-02-27 11:00] LABS: BASOPHILS 0.3 % (0-2); EOSINOPHILS 1.4 % (0-7); HEMATOCRIT 36.5 % (42.0-54.0); HEMOGLOBIN 11.8 g/dL (13.5-17.5); IMMATURE GRANULOCYTES 0.3 % (0-5); LYMPHOCYTES 23.7 % (15-50); MCH 30.6 pg (26.0-34.0); MCHC 32.3 g/dL (31.0-37.0); MCV 94.6 fL (80.0-100.0); MEAN PLATELET VOLUME 9.6 fL (7.4-10.4); MONOCYTES 11.1 % (2-11); NEUTROPHILS 63.2 % (40-80); PLATELET COUNT 651 10x3/uL (130-400); RBC 3.86 10x6/uL (4.20-6.10); RDW 13.7 % (11.5-14.5); WBC 16.9 10x3/uL (4.8-10.8)
[2020-02-27 11:13] LABS: CALC OSMOLALITY 271 mosm/kg (275-300); CARBON DIOXIDE 36.6 mmol/L (21.0-32.0); CHLORIDE - SERUM 93 mmol/L (98-107); CREATININE - SERUM 0.9 mg/dL (0.6-1.3); GLUCOSE 99 mg/dL (74-106); SODIUM 136 mmol/L (136-145); UREA NITROGEN 13 mg/dL (7-18); eGFR NON AFRICAN AMERICAN > 90 mL/min (90-120)
[2020-02-27 11:22] LABS: POTASSIUM - SERUM 3.2 mmol/L (3.5-5.1)
[2020-02-27 11:23] LABS: CALCIUM 13.1 mg/dL (8.5-10.1)
--- NOTE | 2020-02-27 13:36 | NUR ---
PT REQUESTED LINES BE MOVED. WANTED TO HAVE CORD UNTANGLED SO HE CAN MOVE ARMS FREELY. WILL CONTINUE TO MONITOR
--- NOTE | 2020-02-27 15:11 | NUR ---
PT COMPLAINING OF LOWER BACK PAIN. PAIN MEDICATION GIVEN. REASSESSMENT COMPLETED. VSS. WILL CONTINUE TO MONITOR
--- NOTE | 2020-02-27 17:41 | MORECARE ---
CASE MANAGEMENT DISCHARGE SUMMARY PATIENT: KENNEDY MCCRARY UNIT: [id number] ADM DATE: 02/26/20 AGE: 49 : 66 SEX: M ROOM/BED: D.2309 AUTHOR: IVETTEDOC PHYSICIAN: REFERRING PHYSICIAN: BRADLY BELL MD DATE OF SERVICE: 02/27/20 Discharge Plan Patient Name: KENNEDY MCCRARY Facility: [facility]:[place] : 1970 Planned Disposition: Home Anticipated Discharge Date: Discharge Date: Expected LOS: Initial Reviewer: [email or web address] Initial Review Date: 02/26/2020 Generated: 02/27/20 6:41 pm Comments DCP- Discharge Planning Updated by [email or web address]: Vaishnavi Engel on 02/26/20 7:[address] Patient Name: KENNEDY MCCRARY Admission Status: ER Accout number: [id number] Admission Date: 02-26-2020 : 1970 Admission Diagnosis: Attending: BRADLY BELL Current LOS: 1 Anticipated DC Date: Planned Disposition: Home Primary Insurance: MEDICAID [place] Discharge Planning Comments: CM met with patient to complete initial dc planning assessment. CM educated patient on the CM role and verbal consent given by patient to complete assessment. Patient lives at home with family. Patient is independent. At discharge patient plans to return home and feels this is a safe discharge. CM discussed availability of home health, rehab services, and medical equipment. Patient feel like he needs home 02 and a hospital bed upon discharge. Request [facility] for DME. Patient will have family to transport home. CM will continue to follow and will assist as needed with dc plans/needs. Bilingual Executive Assistant: Vaisnhavi Engel DCPIA - Discharge Planning Initial Assessment Updated by [email or web address]: Vaishnavi Engel on 02/26/20 8:45 pm * Is the patient Alert and Oriented? Yes * How many steps to enter\exit or inside your home? * PCP MEREDITH BANGURA * Pharmacy [facility] * Preadmission Environment Home with Family * ADLs Independent * Other Equipment CANE, NEBULIZER, SHOWER CHAIR * List name and contact numbers for known caregivers / representatives who currently or will assist patient after discharge: JEANNEJacqueline MCCRARY - [facility] - [phone] * Verbal permission to speak to the caregivers and representatives has been obtained from the patient. Yes * Community resources currently utilized None * Additional services required to return to the preadmission environment? No * Can the patient safely return to the preadmission environment? Yes * Has this patient been hospitalized within the prior 30 days at any hospital? No Last DP export: 02/26/20 7:54 p Patient Name: KENNEDY MCCRARY Page [phone] at 1741 All edits/amendments must be made on the electronic document DICTATION DATE: 02/27/201740 MATERIAL PREPARATION WORKER: RAÚL 02/27/201740 RPT#: [id number] [place] DATE: STATUS: ADM IN [facility] [address] [place] [address] END OF REPORT
--- NOTE | 2020-02-27 17:45 | NUR ---
1540 BEDSIDE REPORT RECEIVED FROM CARMENCITA IBARRAUPHOLSTERY REPAIRER COMPLETE TUBE FEEDING OF OSMOLYTE AT 5 ML/HR
--- NOTE | 2020-02-27 17:50 | MORECARE ---
CASE MANAGEMENT DISCHARGE SUMMARY PATIENT: KENNEDY MCCRARY UNIT: [id number] ADM DATE: 02/26/20 AGE: 49 : 66 SEX: M ROOM/BED: D.2309 AUTHOR: BRANDO STEELE PHYSICIAN: REFERRING PHYSICIAN: BRADLY BELL MD DATE OF SERVICE: 02/27/20 Discharge Plan Patient Name: KENNEDY MCCRARY Facility: [facility]:[place] : 1970 Planned Disposition: Home Anticipated Discharge Date: Discharge Date: Expected LOS: Initial Reviewer: [email or web address] Initial Review Date: 02/26/2020 Generated: 02/27/20 6:49 pm Comments DCP- Discharge Planning Updated by [email or web address]: Vaishnavi Engel on 02/27/20 4:[address] CM received a call from [employer] and stated that patient was with [facility] and [facility] was there DME provider and in order for patient to qualify for Home 02 they will need an ABG prior to discharge to qualify. CM will need to find out if patient is planning on discharging back with [facility]. DCP- Discharge Planning Updated by [email or web address]: Vaishnavi Engel on 02/26/20 7:[address] Patient Name: KENNEDY MCCRARY Admission Status: ER Accout number: [id number] Admission Date: 02-26-2020 : 1970 Admission Diagnosis: Attending: BRADLY BELL Current LOS: 1 Anticipated DC Date: Planned Disposition: Home Primary Insurance: MEDICAID [place] Discharge Planning Comments: CM met with patient to complete initial dc planning assessment. CM educated patient on the CM role and verbal consent given by patient to complete assessment. Patient lives at home with family. Patient is independent. At discharge patient plans to return home and feels this is a safe discharge. CM discussed availability of home health, rehab services, and medical equipment. Patient feel like he needs home 02 and a hospital bed upon discharge. Request [facility] for DME. Patient will have family to transport home. CM will continue to follow and will assist as needed with dc plans/needs. Pathology Lab Technician: Vaishnavi Engel DCPIA - Discharge Planning Initial Assessment Updated by [email or web address]: Vaishnavi Engel on 02/26/20 8:45 pm * Is the patient Alert and Oriented? Yes * How many steps to enter\exit or inside your home? * PCP MEREDITH BANGURA * Pharmacy [facility] * Preadmission Environment Home with Family * ADLs Independent * Other Equipment CANE, NEBULIZER, SHOWER CHAIR * List name and contact numbers for known caregivers / representatives who currently or will assist patient after discharge: JEANNE MCCRARY - [facility] - [phone] * Verbal permission to speak to the caregivers and representatives has been obtained from the patient. Yes * Community resources currently utilized None * Additional services required to return to the preadmission environment? No * Can the patient safely return to the preadmission environment? Yes * Has this patient been hospitalized within the prior 30 days at any hospital? No Last DP export: 02/27/20 4:41 p Patient Name: KENNEDY MCCRARY Page 55536 at 1750 All edits/amendments must be made on the electronic document DICTATION DATE: 02/27/201748 NETWORK INTERNSHIP: RAÚL 02/27/201748 RPT#: [id number] DC DATE: STATUS: ADM IN [facility] [address] [place] [address] END OF REPORT
[2020-02-28] VITALS (12 sets, daily range): BP systolic 89–124; BP diastolic 61–91
[2020-02-28 01:23] LABS: CALC OSMOLALITY 268 mosm/kg (275-300); CHLORIDE - SERUM 96 mmol/L (98-107); CREATININE - SERUM 0.9 mg/dL (0.6-1.3); GLUCOSE 93 mg/dL (74-106); SODIUM 135 mmol/L (136-145); UREA NITROGEN 10 mg/dL (7-18); eGFR NON AFRICAN AMERICAN > 90 mL/min (90-120)
[2020-02-28 01:30] LABS: ALBUMIN 2.6 g/dL (3.4-5.0)
[2020-02-28 01:42] LABS: CALCIUM 12.2 mg/dL (8.5-10.1); POTASSIUM - SERUM 2.9 mmol/L (3.5-5.1)
--- NOTE | 2020-02-28 07:00 | NUR ---
ASSESSMENT COMPLETE PER FLOWSHEET. NO CO AT TIME.
--- NOTE | 2020-02-28 11:08 | NUR ---
Nutrition follow-up: Dophoff tube placed and Osmolite 1.0 kia infusing @ 5 ml/hr Pt is currently tolerating; if pt continues to tolerated, PEG tube will be placed. Labs reviewed WT: 148# Monitoring for refeeding syndrome RDN following.
--- NOTE | 2020-02-28 12:19 | NUR ---
REPORT CALLED TO NICOLA. PT TRANSFER BY BED.
--- NOTE | 2020-02-28 12:39 | NUR ---
ARRIVES TO UNIT PER BED, DOBHOFF IN PLACE, OSMOLYTE AT 10CC, DENIES NAUSEA, PICC LINE TO RIGHT UPPER ARM, NO S/S OF INFECTION, CONT TO MONITOR
[2020-02-29] VITALS: BP 106/70
--- NOTE | 2020-02-29 00:29 | NUR ---
I have reviewed this patient and I concur with the Shift Assessment completed by the Licensed Practical Nurse today this shift.
--- NOTE | 2020-02-29 01:26 | NUR ---
PT RESTING IN BED. EYES CLOSED. NO SIGNS OF DISTRESS. BREATHING EVEN AND UNLABORED. IV SITE RT UPPER ARM PICC. DRESSING CLEAN DRY AND INTACT. NO SIGNS OF INFECITON. FEEDING TUBE PRESENT AND IN PLACE. FEEDING GOING AT THIS TIME. SKIN CLEAN DRY AND INTACT. WILL CONTINUE PLAN OF CARE. CALL LIGHT IN REACH. BED LOWERED AND LOCKED. BED RAILS UPX2.
[2020-02-29 04:00] VITALS: BP 130/61
--- NOTE | 2020-02-29 04:00 | NUR ---
INCREASED FEED BY 10ML/HR. NOW AT 20ML/HR.
[2020-02-29 08:00] VITALS: BP 99/58
--- NOTE | 2020-02-29 08:07 | NUR ---
PT IS ALERT AND ORIENTED X4 UPON ENTERING ROOM. ADMINISTERED MORNING MEDICATION, REQUESTED PRN MORPHINE, WILL PROVIDE ONCE IT IS TIME. PT HAS A RIGHT UPPER ARM PICC LINE THAT IS SALINE LOCKED. PT IS UP ADLIB. RESTING IN BED UPRIGHT. DENIES ANY NEEDS. WILL CONTINUE TO MONITOR.
--- NOTE | 2020-02-29 11:03 | NUR ---
HUNG BAG OF SODIUM PHOSPHATE PER ELECTROLYTE PROTOCOL. TGOLERATING WELL. PT IS GETTING UP WITH SPOUSE TO AMBULATE AROUND UNIT. DENIES ANY NEEDS. WILL CONTINUE TO MONITOR.
[2020-02-29 12:01] VITALS: BP 111/77
--- NOTE | 2020-02-29 14:49 | NUR ---
ADMINISTERED ATIVAN AT THIS TIME FOR PATIENT ANXIETY. ADVANCED TUBE FEEDING TO 30 ML. DENIES ANY NEEDS. RESTING COMFORTABLY IN BED. WILL CONTINUE TO MONITOR.
[2020-02-29 15:25] VITALS: Ht 175.3 cm; Wt 72.0 kg
[2020-02-29 17:03] VITALS: BP 102/74
--- NOTE | 2020-02-29 19:22 | NUR ---
I have reviewed this patient and I concur with the Shift Assessment completed by the Licensed Practical Nurse today this shift.
[2020-02-29 20:00] VITALS: BP 99/64
--- NOTE | 2020-02-29 20:00 | NUR ---
PATIENT RESTING IN BED WATCHING TV. NO S/S OF ACUTE DISTRESS. NO C/O AT THIS TIME. PATIENT HAS FEEDING TUBE IN NOSE. PATIENT HAS A RIGHT UPPER PICC THAT IS SALINE LOC. IV IS PATENT WITHOUT REDNESS, SWELLING, OR TENDERNESS. PATINT IS UP ADLIB. PATIENT CAN HAVE ICE CHIPS. PATIENT IS NPO AFTER MIDNIGHT FOR PROCEDURE TOMMORROW. CALL LIGHT WITHIN REACH. WILL CONTINUE TO MONITOR.
[2020-03-01] VITALS: BP 102/71
[2020-03-01 04:00] VITALS: BP 88/50
--- NOTE | 2020-03-01 04:35 | NUR ---
I have reviewed this patient and I concur with the Shift Assessment completed by the Licensed Practical Nurse today this shift.
--- NOTE | 2020-03-01 05:20 | NUR ---
PATIENT MORPHINE FELL OFF THE EMAR. CHUY SIMMONS WAS PAGED TO GET THE ORDER OF MORPHINE RENEWED. CHUY RENEWED ORDER. CALL LIGHT WITHIN REACH. WILL CONTINUE TO MONITOR.
[2020-03-01 06:21] LABS: HEMOGLOBIN 9.4 g/dL (13.5-17.5); MCH 30.4 pg (26.0-34.0); MCHC 32.4 g/dL (31.0-37.0); MCV 93.9 fL (80.0-100.0); MEAN PLATELET VOLUME 10.3 fL (7.4-10.4); PLATELET COUNT 748 10x3/uL (130-400); RBC 3.09 10x6/uL (4.20-6.10); WBC 27.2 10x3/uL (4.8-10.8)
[2020-03-01 06:25] LABS: INR 1.26 (0.85-1.17); PROTIME 15.8 SECONDS (11.6-15.0)
[2020-03-01 06:34] LABS: CALC OSMOLALITY 269 mosm/kg (275-300); CARBON DIOXIDE 33.4 mmol/L (21.0-32.0); CHLORIDE - SERUM 95 mmol/L (98-107); CREATININE - SERUM 1.1 mg/dL (0.6-1.3); GLUCOSE 130 mg/dL (74-106); MAGNESIUM - SERUM 1.4 mg/dL (1.8-2.4); PHOSPHOROUS 2.4 mg/dL (2.5-4.9); SODIUM 135 mmol/L (136-145); UREA NITROGEN 7 mg/dL (7-18); eGFR NON AFRICAN AMERICAN 75 mL/min (90-120)
[2020-03-01 06:59] LABS: POTASSIUM - SERUM 2.5 mmol/L (3.5-5.1)
[2020-03-01 07:00] LABS: CALCIUM 12.4 mg/dL (8.5-10.1)
--- NOTE | 2020-03-01 07:00 | NUR ---
RECEIVED PT FROM HOME SUPPORT WORKER. PT RECLINED IN BED UPON ENTERING WITH EYES CLOSED, BREATHING EVEN AND UNLABORED BUT SHALLOW. NO S/S OF DISTRESS NOTED AT THIS TIME. PT TO GO FOR PEG PLACEMENT TODAY, CONSENTS SIGNED, PREOP MEDICATION GIVEN BY HOME SUPPORT WORKER. PT HAS LUNCH CANCER WITH METS. RIGHT UPPER ARM PICC LINE SALINE LOCKED. 2L 02 VIA NC PRN. ATIVAN Q12 FOR ANXIETY. GI TEAM IN ROOM UPON ENTERING TO TAKE PT FOR PROCEDURE.
--- NOTE | 2020-03-01 07:30 | NUR ---
PT RETURNED TO ROOM. GI TEAM CALLED TO INFORM THAT PT WILL NOT BE ABLE TO HAVE PROCEDURE RIGHT NOW DUE TO ELEVATED HEART RATE, THEY PERFORMED A NEW EKG ON PATIENT, IT IS IN THE CHART. WILL PLACE TELEMETRY ON PATIENT ONCE ONE BECOMES AVAILABLE. PT IS RESTING COMFORTABLY IN BED. BED IN LOWEST POSITION, BED RAILS X2, CALL LIGHT WITHIN REACH. WILL CONTINUE TO MONITOR.
[2020-03-01 10:21] LABS: EOSINOPHILS 1 % (0-7); LYMPHOCYTES 14 % (15-50); MONOCYTES 15 % (2-11); NEUTROPHILS 69 % (40-80); PLATELET ESTIMATE INCREASED
--- NOTE | 2020-03-01 10:58 | NUR ---
CALLED REPORT TO ICU, PT WILL BE MOVING TO ROOM 2312.
--- NOTE | 2020-03-01 11:11 | NUR ---
STARTED POTASSIUM TO REPLETE PER ELECTROLYTE PROTOCOL. INFORMED PT OF TRANSFER, DENIES ANY NEEDS. WILL CONTINUE TO MONITOR.
--- NOTE | 2020-03-01 11:57 | NUR ---
PT ARRIVED ON UNIT VIA BED, HOOKED UP TO MONITORS, PT IS NSR ON THE MONITOR WITH HR OF 94, ON RA WITH 97% O2 SAT, ALL PPP, VSS, CALL LIGHT IN REACH
[2020-03-01 12:00] VITALS: BP 98/58
--- NOTE | 2020-03-01 12:01 | NUR ---
PT HAS BEEN TRANSFERRED TO ICU ROOM 0329
[2020-03-01 12:17] LABS: MAGNESIUM - SERUM 1.5 mg/dL (1.8-2.4); POTASSIUM - SERUM 3.2 mmol/L (3.5-5.1)
--- NOTE | 2020-03-01 13:41 | NUR ---
Nutrition follow-up: Pt unable to have PEG tube placed today 2/2 RVR; back in ICU room 2312. NPO Dobhoff tube placed and Osmolite was infusing @ 20 ml/hr Wt: 148# Phenotypic criteria 1. ~4% weight loss in less than 1 week ( 155# on admit - now 148#) 2. BMI: 21.9 Etiologic criteria 1. < 50% intake of estimated enerrgy needs for > 1 week 2/2 inability to swallow 2/2 tumor size 2. Pt with lung cancer Based on above GLIM criteria, pt is now assessed with moderate malnutriton of chronic illness R/T lung cancer Pt to have PEG placed with heart rate stable. RDN following.
[2020-03-01 16:00] VITALS: BP 97/64
[2020-03-01 19:00] VITALS: BP 101/75
--- NOTE | 2020-03-01 19:00 | NUR ---
REPORT RECEIVED. RECEIVED PATIENT IN BED, AWAKE ALERT AND ORIENTED X 4. SPEECH SOFT BUT CLEAR. ASSESSMENT COMPLETED PER FLOW SHEET WITH NO ACUTE DISTRESS OBSERVED. VSS. CALL LIGHT IN REACH AND ABLE TO UTILIZE TO MAKE NEEDS KNOWN.
[2020-03-01 23:00] VITALS: BP 98/73
[2020-03-02 03:00] VITALS: BP 106/73
[2020-03-02 05:10] LABS: BASOPHILS 0.5 % (0-2); EOSINOPHILS 3.2 % (0-7); HEMATOCRIT 32.4 % (42.0-54.0); HEMOGLOBIN 10.2 g/dL (13.5-17.5); IMMATURE GRANULOCYTES 0.3 % (0-5); LYMPHOCYTES 24.9 % (15-50); MCH 29.8 pg (26.0-34.0); MCHC 31.5 g/dL (31.0-37.0); MCV 94.7 fL (80.0-100.0); MEAN PLATELET VOLUME 9.2 fL (7.4-10.4); MONOCYTES 13.2 % (2-11); NEUTROPHILS 57.9 % (40-80); PLATELET COUNT 608 10x3/uL (130-400); RBC 3.42 10x6/uL (4.20-6.10); RDW 14.1 % (11.5-14.5); WBC 15.9 10x3/uL (4.8-10.8)
[2020-03-02 05:29] LABS: CALCIUM 11.8 mg/dL (8.5-10.1); CARBON DIOXIDE 37.9 mmol/L (21.0-32.0); CHLORIDE - SERUM 99 mmol/L (98-107); GLUCOSE 128 mg/dL (74-106); MAGNESIUM - SERUM 1.6 mg/dL (1.8-2.4); PHOSPHOROUS 2.1 mg/dL (2.5-4.9); SODIUM 135 mmol/L (136-145); eGFR NON AFRICAN AMERICAN 84 mL/min (90-120)
[2020-03-02 05:30] LABS: CALC OSMOLALITY 270 mosm/kg (275-300); UREA NITROGEN 11 mg/dL (7-18)
[2020-03-02 05:33] LABS: POTASSIUM - SERUM 2.9 mmol/L (3.5-5.1)
--- NOTE | 2020-03-02 07:30 | NUR ---
PATIENT ACCIDENTALLY REMOVED DOBHOFF . NEW DOBHOFF INSERTED. APOLINAR WELL. XRAY NOTIFIED FOR PLACEMENT CHECK. DR. MIRZA HERE , PLAN FOR GTUBE PLACEMENT WEDNESDAY.
[2020-03-02 07:50] VITALS: BP 106/41
[2020-03-02 11:00] VITALS: BP 102/77
--- NOTE | 2020-03-02 11:53 | NUR ---
DOBHOFF PLACEMENT VERIFIED BY X RAY TO BE IN STOMACH. OSMOLITE RESTARTED AT 40CC/HR.
[2020-03-02 15:00] VITALS: BP 99/68
[2020-03-02 19:00] VITALS: BP 113/82
--- NOTE | 2020-03-02 19:00 | NUR ---
REPORT RECEIVED. RECEIVED PATIENT IN BED. AWAKE ALERT AND ORIENTED X 4. SPEECH SOFT/CLEAR. ASSESSMENT COMPLETED PER FLOW SHEET WITH NO ACUTE DISTRESS OBSERVED. VSS. CALL LIGHT IN REACH AND ABLE TO UTILIZE TO MAKE NEEDS KNOWN. CONTINUE CURRENT POC
[2020-03-02 23:00] VITALS: BP 115/47
[2020-03-03 03:00] VITALS: BP 110/73
[2020-03-03 03:42] LABS: BASOPHILS 0.3 % (0-2); HEMATOCRIT 33.8 % (42.0-54.0); HEMOGLOBIN 10.7 g/dL (13.5-17.5); IMMATURE GRANULOCYTES 0.4 % (0-5); LYMPHOCYTES 22.8 % (15-50); MCH 30.1 pg (26.0-34.0); MCHC 31.7 g/dL (31.0-37.0); MCV 94.9 fL (80.0-100.0); MONOCYTES 12.7 % (2-11); NEUTROPHILS 60.8 % (40-80); PLATELET COUNT 573 10x3/uL (130-400); RBC 3.56 10x6/uL (4.20-6.10); RDW 14.2 % (11.5-14.5); WBC 18.7 10x3/uL (4.8-10.8)
[2020-03-03 04:00] LABS: CALC OSMOLALITY 273 mosm/kg (275-300); CALCIUM 11.8 mg/dL (8.5-10.1); CARBON DIOXIDE 33.6 mmol/L (21.0-32.0); CHLORIDE - SERUM 100 mmol/L (98-107); CREATININE - SERUM 0.9 mg/dL (0.6-1.3); GLUCOSE 127 mg/dL (74-106); MAGNESIUM - SERUM 1.9 mg/dL (1.8-2.4); PHOSPHOROUS 2.1 mg/dL (2.5-4.9); SODIUM 137 mmol/L (136-145); UREA NITROGEN 8 mg/dL (7-18); eGFR NON AFRICAN AMERICAN > 90 mL/min (90-120)
--- NOTE | 2020-03-03 06:16 | NUR ---
RADHA PICC DRESSING CHANGED PER PROTOCOL. APOLINAR NEWBERRY
[2020-03-03 07:30] VITALS: BP 100/75
[2020-03-03 11:01] LABS: BILIRUBIN NEGATIVE (NEGATIVE); GLUCOSE NEGATIVE (NEGATIVE); KETONE NEGATIVE (NEGATIVE); NITRITE NEGATIVE (NEGATIVE); SPECIFIC GRAVITY 1.015 (1.005-1.020); UROBILINOGEN NORMAL (NORMAL)
[2020-03-03 11:20] VITALS: BP 106/79
[2020-03-03 15:20] VITALS: BP 104/76
[2020-03-03 19:00] VITALS: BP 108/80
--- NOTE | 2020-03-03 22:54 | NUR ---
1900- ASSESSMENT COMPLETED. AT BEDSIDE. DENIES ANY NEEDS AT THIS TIME. VERBALIZES PEG PLACEMENT TOMORROW. PICC LINE PATENT WITH NS KVO AT 20 ML/HR. BREATHING ON ROOM AIR AT 98%. NGT INFUSING OSMOLITE AT 50 ML/HR 2099- REQUESTING MORPHINE FOR PAIN TO BACK AND STOMACH. 2254- WATCHING TV. DENIES ANY NEEDS. CALL LIGHT IN REACH.
[2020-03-03 23:00] VITALS: BP 109/77
[2020-03-04] VITALS (7 sets, daily range): BP systolic 94–139; BP diastolic 60–87
--- NOTE | 2020-03-04 04:41 | NUR ---
0000- TUBE FEEDING TURNED OFF D/T PROCEDURE TODAY AND PATIENT IS NOW NPO. 0100-WATCHING TV. REQUESTING PRN MORPHINE. 0300- EYES CLOSED, EASILY WAKES. 0442- EYES CLOSED, VSS. EASILY WAKES. DENIES ANY NEEDS.
[2020-03-04 04:45] LABS: HEMOGLOBIN 9.8 g/dL (13.5-17.5); LYMPHOCYTES 23.2 % (15-50); MCH 30.8 pg (26.0-34.0); MCHC 32.7 g/dL (31.0-37.0); MCV 94.3 fL (80.0-100.0); MEAN PLATELET VOLUME 8.9 fL (7.4-10.4); NEUTROPHILS 61.7 % (40-80); PLATELET COUNT 643 10x3/uL (130-400); RBC 3.18 10x6/uL (4.20-6.10); RDW 13.9 % (11.5-14.5); WBC 17.6 10x3/uL (4.8-10.8)
[2020-03-04 05:01] LABS: CALC OSMOLALITY 271 mosm/kg (275-300); CALCIUM 11.3 mg/dL (8.5-10.1); CARBON DIOXIDE 33.5 mmol/L (21.0-32.0); CHLORIDE - SERUM 102 mmol/L (98-107); CREATININE - SERUM 0.9 mg/dL (0.6-1.3); GLUCOSE 103 mg/dL (74-106); MAGNESIUM - SERUM 1.7 mg/dL (1.8-2.4); POTASSIUM - SERUM 3.3 mmol/L (3.5-5.1); SODIUM 137 mmol/L (136-145); UREA NITROGEN 8 mg/dL (7-18); eGFR NON AFRICAN AMERICAN > 90 mL/min (90-120)
[2020-03-04 05:02] LABS: PHOSPHOROUS 3.1 mg/dL (2.5-4.9)
--- NOTE | 2020-03-04 07:33 | NUR ---
0700 PT RECIEVED ALERT AND ORIENTED VSS DENIES PAIN AND ALL NEEDS, DOBHOFF TO Rachana MESSER PICC DRESSING CDI, SEE SHIFT ASSESSMENT FOR DETAILS
--- NOTE | 2020-03-04 10:15 | NUR ---
Nutrition follow-up: Pt NPO for PEG tube placement today labs reviewed Pt has been tolerating Osmolite 1.0 kia @ 50 ml/hr via dobhoff tube Wt: 158# Recommend Osmolite 1.0 kia resume post-PEG when medically feasible @ 50 ml/hr RDN following.
--- NOTE | 2020-03-04 10:25 | NUR ---
peg not placed to drainage bag per dr johnson
--- NOTE | 2020-03-04 10:25 | NUR ---
peg tube placed by gi lab at bedside
--- NOTE | 2020-03-04 13:57 | NUR ---
PT TOLERATING ICE CHIPS, ABLE TO REPOSITON SELF, DENIES ALL NEEDS
--- NOTE | 2020-03-04 15:00 | NUR ---
PT ABLE TO REPOSITION SELF, DENIES ALL NEEDS, VSS, WILL CONTINUE TO MONITOR
--- NOTE | 2020-03-04 16:10 | NUR ---
REPORT CALLED TO [phone]
--- NOTE | 2020-03-04 16:24 | NUR ---
TO ROOM 2216 FROM ICU VIA WHEELCHAIR. RASH NOTED TO BACK,LIGHT RED.PATIENT STATES HAS ALLERGY TO SOAPS AND ASSEMBLER LAY UPS.DRESSING ABDOMEN CDI TO PEG SITE. INSTRUCTED URINAL USE.IS TO BEDSIDE. IN ROOM.CALL LIGHT IN REACH
--- NOTE | 2020-03-04 20:00 | NUR ---
LYING IN BED. VOICE IS SOFT, HOARSE. ALERT AND ORIENTED X4. C/O PAIN IN ABD AND BACK RATING 7. MEDICATED WITH MORPHINE ORDERED. PEG TUBE NOTED TO ABD HAS DRSG THAT IS C/D/I. O2 @ 2LNC. RESP SHALLOW, NONLABORED. NS @ 30 MLHR INFUSING IN RT UPPER ARM PICC. AT BEDSIDE. SR ELEVATED X2. CL IN REACH.
--- NOTE | 2020-03-04 23:51 | NUR ---
MEDICATED WITH MORPHINE FOR C/O ABD PAIN. CL IN REACH.
[2020-03-05 00:33] VITALS: BP 131/82
[2020-03-05 04:00] VITALS: BP 112/74
[2020-03-05 06:48] LABS: HEMATOCRIT 31.9 % (42.0-54.0); HEMOGLOBIN 10.1 g/dL (13.5-17.5); MCH 30.2 pg (26.0-34.0); MCHC 31.7 g/dL (31.0-37.0); MCV 95.5 fL (80.0-100.0); MEAN PLATELET VOLUME 9.5 fL (7.4-10.4); PLATELET COUNT 624 10x3/uL (130-400); RBC 3.34 10x6/uL (4.20-6.10); RDW 14.7 % (11.5-14.5); WBC 21.5 10x3/uL (4.8-10.8)
[2020-03-05 07:00] LABS: CARBON DIOXIDE 29.6 mmol/L (21.0-32.0); CHLORIDE - SERUM 102 mmol/L (98-107); CREATININE - SERUM 0.9 mg/dL (0.6-1.3); GLUCOSE 96 mg/dL (74-106); PHOSPHOROUS 3.5 mg/dL (2.5-4.9); POTASSIUM - SERUM 4.1 mmol/L (3.5-5.1); SODIUM 138 mmol/L (136-145); eGFR NON AFRICAN AMERICAN > 90 mL/min (90-120)
[2020-03-05 07:02] LABS: CALC OSMOLALITY 274 mosm/kg (275-300); UREA NITROGEN 11 mg/dL (7-18)
[2020-03-05 07:03] LABS: CALCIUM 12.9 mg/dL (8.5-10.1)
--- NOTE | 2020-03-05 07:23 | NUR ---
Nutrition follow-up/consult: Pt s/p PEG tube placement 03/04/20 Osmolite 1.0 kia ordered to start @ 1000 today @ 30 ml/hr and increase to goal rate of 75 ml/hr with 30 ml H2O flush q hour per Dr. Cook consult. Wt: 158# Labs reviewed RDN monitoring pts TF tolerance. Following.
--- NOTE | 2020-03-05 07:35 | NUR ---
PAGE TO LIVESTOCK JUDGING COACH CRITICAL HIGH CALCIUM 12.9
[2020-03-05 09:01] VITALS: BP 103/73
[2020-03-05 10:25] LABS: BASOPHILS 1 % (0-2); EOSINOPHILS 3 % (0-7); LYMPHOCYTES 14 % (15-50); MONOCYTES 12 % (2-11); NEUTROPHILS 70 % (40-80); PLATELET ESTIMATE INCREASED
[2020-03-05 10:26] LABS: ANISOCYTOSIS OCC
[2020-03-05 12:37] VITALS: BP 113/79
[2020-03-05 16:47] VITALS: BP 120/74
--- NOTE | 2020-03-05 18:21 | NUR ---
TUBE FEEDS INCREASED TO 40 CC PER HOUR. RESIDUAL CHECKED BEFORE,10 CC. TOLERATING WELL.
--- NOTE | 2020-03-05 18:50 | NUR ---
REMAINS WITHOUT DISTRESS.WITHOUT CHANGE. CONT PLAN OF CARE
[2020-03-05 20:00] VITALS: BP 125/87
--- NOTE | 2020-03-05 20:00 | NUR ---
PT SITTING UP IN BED WITHOUT DISTRESS, AOX4. RIGHT UPPER ARM PICC INFUSING NS @ KVO. PEG TUBE INFUSING OSMOLITE 1.0CAL @ 40ML/HR. TOLERATING WELL. DOES NOT WANT SCDS ON AT THIS TIME. DENIES NEEDS. CL IN REACH, WIIL CTM
--- NOTE | 2020-03-05 21:30 | NUR ---
PT STATES PAIN 03/22, GAVE MORPHINE ORDERED. REQUESTING ATIVAN FOR ANXIETY AND SLEEP, NOT ABLE TO GIVE YET. CALLED [facility], ORDERS FOR MELATONIN 6MG QHS. GAVE ORDERED. DENIES OTHER NEEDS. CL IN REACH, WILL CTM
[2020-03-06] VITALS: BP 110/78
--- NOTE | 2020-03-06 00:30 | NUR ---
FEEDING RESIDUAL CHECK 5ML, INCREASED FEED TO 50ML/HR
[2020-03-06 04:00] VITALS: BP 116/87
[2020-03-06 04:31] LABS: BASOPHILS 0.4 % (0-2); EOSINOPHILS 2.6 % (0-7); HEMATOCRIT 33.7 % (42.0-54.0); HEMOGLOBIN 10.8 g/dL (13.5-17.5); IMMATURE GRANULOCYTES 0.4 % (0-5); MCH 30.2 pg (26.0-34.0); MCV 94.1 fL (80.0-100.0); MEAN PLATELET VOLUME 9.4 fL (7.4-10.4); MONOCYTES 10.9 % (2-11); NEUTROPHILS 68.7 % (40-80); PLATELET COUNT 725 10x3/uL (130-400); RBC 3.58 10x6/uL (4.20-6.10); RDW 14.4 % (11.5-14.5); WBC 22.8 10x3/uL (4.8-10.8)
[2020-03-06 04:59] LABS: ALBUMIN 2.5 g/dL (3.4-5.0); ALKALINE PHOSPHATASE 125 U/L (30-120); ALT (SGPT) 50 U/L (10-68); BILIRUBIN - TOTAL 0.52 mg/dL (0.2-1.3); CARBON DIOXIDE 31.8 mmol/L (21.0-32.0); CHLORIDE - SERUM 101 mmol/L (98-107); PROTEIN - SERUM 6.3 g/dL (6.4-8.2); SODIUM 136 mmol/L (136-145); UREA NITROGEN 12 mg/dL (7-18); eGFR NON AFRICAN AMERICAN 84 mL/min (90-120)
[2020-03-06 05:24] LABS: CALC OSMOLALITY 274 mosm/kg (275-300); GLUCOSE 150 mg/dL (74-106); PHOSPHOROUS 2.6 mg/dL (2.5-4.9)
[2020-03-06 05:25] LABS: CALCIUM 13.4 mg/dL (8.5-10.1)
--- NOTE | 2020-03-06 07:34 | NUR ---
PT K+ IS 3.0, ASKED LAB TO RUN MAG WELL AND MAG IS 1.8. ADMINISTERED K+ AND MAG PER PROTOCOL. PT LYING IN BED, FEEDINGS AT 60, IV NS AT 30, LUNGS CTA PT ON 2L. NO NEEDS VOICED, VERBALIZED UNDERSTANDING ON EP. CL IN REACH CONTINUE WITH PLAN OF CARE
[2020-03-06 09:10] VITALS: BP 112/75
--- NOTE | 2020-03-06 10:47 | NUR ---
ADMINISTERED PRN PAIN MEDICATION AND ANXIETY MEDICATION. PT SPOUSE AT BEDSIDE, PT HAS RASH ON BACKSIDE, SPOUSE HAS BEEN APPLYING CREAM. NO NEEDS AT THIS TIME, CONTINUE WITH PLAN OF CARE
[2020-03-06 12:40] VITALS: BP 104/75
--- NOTE | 2020-03-06 14:20 | NUR ---
INCREASED PT FEEDINGS TO 70, PT HAS LESS THAN 5ML OF RESIDUAL WHEN CHECKED, PT IS SLEEPING AND EASILY AWAKENED DURING ROUNDS NO NEEDS AT THIS TIME. TOLD PT I WILL RETURN THIS AFTERNOON TO CHANGE PICC DRESSING
--- NOTE | 2020-03-06 14:27 | NUR ---
PT HAS A RED RASH ON HIS BACK, ARMS LEGS. HE AND HIS STATE IT IS CONTACT DERMATITIS THAT HE GETS ANYTIME LINEN OR CLOTHING IS WASHED IN DETERGENT OTHER THAN TIDE. HE HAS SEEN A HEAT TREAT WORKER FOR THIS IN THE PAST AND USES TRIAMCINOLONE ACETONIDE CREAM. HAS BROUGHT A BLANKET FOR HIM TO PUT BEHIND HIS BACK SO IT'S NOT SO ITCHY. WILL RECOMMEND USING TRIAMCINOLONE ACETONIDE CREAM DURING HIS STAY,
--- NOTE | 2020-03-06 16:34 | NUR ---
ADMINSITERED PRN PAIN MEDICATION, PT STATED PAIN IS AT A 7 . GAVE PT ORDERED SUPPOSITORY. SPOUSE AT BEDSIDE, NO OTHER NEEDS AT THIS TIME. CONTINUE WITH PLAN OF CARE
--- NOTE | 2020-03-06 17:03 | NUR ---
I have reviewed this patient and I concur with the Shift Assessment completed by the Licensed Practical Nurse today this shift.
[2020-03-06 17:15] VITALS: BP 105/73
--- NOTE | 2020-03-06 19:30 | NUR ---
PT SITTING UP IN BED WITHOUT DISTRESS, AOX4. AT BEDSIDE. PEG TUBE RESIDUAL <5ML. INCREASED FEED TO 75ML/HR TO REACH GOAL RATE. PT STATES HE IS FEELING BLOATED AND BELCHING A LITTLE. HAS NOT HAD BM YET. DENIES NEEDS AT THIS TIME. CL IN REACH, WILL CTM
[2020-03-06 20:00] VITALS: BP 105/75
[2020-03-07] VITALS: BP 116/70
--- NOTE | 2020-03-07 01:15 | NUR ---
PT STATES PAIN 04/22, GAVE MORPHINE ORDERED. PT WAS ABLE TO SLEEP A FEW HOURS UNTIL HE STARTED HURTING. DENIES OTHER NEEDS. CL IN REACH, WILL CTM
--- NOTE | 2020-03-07 02:30 | NUR ---
PT AWAKE AND RESTLESS, GAVE ATIVAN ORDERED. DENIES OTHER NEEDS
[2020-03-07 04:00] VITALS: BP 92/66
[2020-03-07 07:04] LABS: HEMATOCRIT 32.7 % (42.0-54.0); HEMOGLOBIN 10.2 g/dL (13.5-17.5); MCH 29.7 pg (26.0-34.0); MCHC 31.2 g/dL (31.0-37.0); MCV 95.3 fL (80.0-100.0); MEAN PLATELET VOLUME 10.8 fL (7.4-10.4); PLATELET COUNT 471 10x3/uL (130-400); RBC 3.43 10x6/uL (4.20-6.10); RDW 14.5 % (11.5-14.5); WBC 20.4 10x3/uL (4.8-10.8)
[2020-03-07 07:07] LABS: ALBUMIN 2.5 g/dL (3.4-5.0); ALKALINE PHOSPHATASE 130 U/L (30-120); ALT (SGPT) 81 U/L (10-68); BILIRUBIN - TOTAL 0.35 mg/dL (0.2-1.3); CALC OSMOLALITY 271 mosm/kg (275-300); CALCIUM 11.3 mg/dL (8.5-10.1); CARBON DIOXIDE 32.4 mmol/L (21.0-32.0); CHLORIDE - SERUM 99 mmol/L (98-107); CREATININE - SERUM 1.1 mg/dL (0.6-1.3); GLUCOSE 150 mg/dL (74-106); POTASSIUM - SERUM 3.2 mmol/L (3.5-5.1); PROTEIN - SERUM 6.2 g/dL (6.4-8.2); SODIUM 134 mmol/L (136-145); UREA NITROGEN 14 mg/dL (7-18); eGFR NON AFRICAN AMERICAN 75 mL/min (90-120)
--- NOTE | 2020-03-07 07:27 | NUR ---
ALERT AND ORIENTED. LUNGS CLEAR BILATERALLY. HEART SOUNDS S1 AND S2 HEARD IN ALL LOYD. BOWEL SOUNDS ACTIVE X 4. PEG TUBE PATENT. RADHA PICC PATENT WITHOUT REDNESS. DENIES NEEDS. BED LOW. CALL CARDENAS AND PERSONAL ITEMS IN REACH. WILL CONTINUE TO MONITOR.
--- NOTE | 2020-03-07 08:43 | MORECARE ---
CASE MANAGEMENT DISCHARGE SUMMARY PATIENT: KENNEDY MCCRARY UNIT: [id number] ADM DATE: 02/26/20 AGE: 49 : 66 SEX: M ROOM/BED: D.2216 AUTHOR: BRANDO STEELE PHYSICIAN: REFERRING PHYSICIAN: BRADLY BELL MD DATE OF SERVICE: 03/07/20 Discharge Plan Patient Name: KENNEDY MCCRARY Facility[facility]:[place] : 1970 Planned Disposition: Home Anticipated Discharge Date: Discharge Date: Expected LOS: Initial Reviewer: [email or web address] Initial Review Date: 02/26/2020 Generated: 03/07/20 9:42 am Comments DCP- Discharge Planning Updated by [email or web address]: Kathy Estrella on 03/07/20 7:[address] SPOKE WITH SAVITA AT [facility] TO LET HER KNOW THAT HE SHOULD BE DISCHARGED TODAY. I HAVE FAXED CLINICALS TO [phone], FOR THEM TO GET HIS NUTRITION SET UP. CM TO FOLLOW AND ASSIST NEEDED DCP- Discharge Planning Updated by [email or web address]: Vaishnavi Engel on 02/27/20 4:[address] CM received a call from [employer] and stated that patient was with [facility] and [employer] was there DME provider and in order for patient to qualify for Home 02 they will need an ABG prior to discharge to qualify. CM will need to find out if patient is planning on discharging back with [facility]. DCP- Discharge Planning Updated by [email or web address]: Vaishnavi Engel on 02/26/20 7:[address] Patient Name: KENNEDY MCCRARY Admission Status: ER Accout number: [id number] Admission Date: 02-26-2020 : 1970 Admission Diagnosis: Attending: BRADLY BELL Current LOS: 1 Anticipated DC Date: Planned Disposition: Home Primary Insurance: MEDICAID [place] Discharge Planning Comments: CM met with patient to complete initial dc planning assessment. CM educated patient on the CM role and verbal consent given by patient to complete assessment. Patient lives at home with family. Patient is independent. At discharge patient plans to return home and feels this is a safe discharge. CM discussed availability of home health, rehab services, and medical equipment. Patient feel like he needs home 02 and a hospital bed upon discharge. Request [facility] for DME. Patient will have family to transport home. CM will continue to follow and will assist as needed with dc plans/needs. Lubrication Servicer: Vaishnavi Engel DCPIA - Discharge Planning Initial Assessment Updated by [email or web address]: Vaishnavi Engel on 02/26/20 8:45 pm * Is the patient Alert and Oriented? Yes * How many steps to enter\exit or inside your home? * PCP MEREDITH BANGURA * Pharmacy [facility] * Preadmission Environment Home with Family * ADLs Independent * Other Equipment CANE, NEBULIZER, SHOWER CHAIR * List name and contact numbers for known caregivers / representatives who currently or will assist patient after discharge: JEANNE MCCRARY - [facility] - [phone] * Verbal permission to speak to the caregivers and representatives has been obtained from the patient. Yes * Community resources currently utilized None * Additional services required to return to the preadmission environment? No * Can the patient safely return to the preadmission environment? Yes * Has this patient been hospitalized within the prior 30 days at any hospital? No External Providers External Provider: [facility] Next Contact Date: Service Request Date: Service Type: Resolution: Reviewer: Comments: Last DP export: 02/27/20 4:50 p Patient Name: KENNEDY MCCRARY Page 20600 at 0843 All edits/amendments must be made on the electronic document DICTATION DATE: 03/07/20841 LUMBER STACKER OPERATOR: RAÚL 03/07/20841 RPT#: [id number] DC DATE: STATUS: ADM IN [facility] [address] [place] [address] END OF REPORT
--- NOTE | 2020-03-07 10:11 | NUR ---
Nutrition follow-up: Osmolite 1.0 kia now at goal rate of 75 ml/hr Pt reports some bloating, belching Labs reviewed WT: 158# RDN following.
[2020-03-07 10:30] LABS: BILIRUBIN NEGATIVE (NEGATIVE); GLUCOSE NEGATIVE (NEGATIVE); KETONE NEGATIVE (NEGATIVE); NITRITE NEGATIVE (NEGATIVE); SPECIFIC GRAVITY 1.005 (1.005-1.020); UROBILINOGEN NORMAL (NORMAL)
[2020-03-07 11:05] VITALS: BP 103/63
--- NOTE | 2020-03-07 11:42 | NUR ---
TUBING CHANGED FOR TUBE FEED.
[2020-03-07 11:57] LABS: EOSINOPHILS 1 % (0-7); LYMPHOCYTES 21 % (15-50); MONOCYTES 19 % (2-11); NEUTROPHILS 59 % (40-80); PLATELET ESTIMATE INCREASED
--- NOTE | 2020-03-07 13:39 | MORECARE ---
CASE MANAGEMENT DISCHARGE SUMMARY PATIENT: KENNEDY MCCRARY UNIT: [id number] ADM DATE: 02/26/20 AGE: 49 : 66 SEX: M ROOM/BED: D.2216 AUTHOR: BRANDO STEELE PHYSICIAN: REFERRING PHYSICIAN: BRADLY BELL MD DATE OF SERVICE: 03/07/20 Discharge Plan Patient Name: KENNEDY MCCRARY [facility] [facility] 1970 Planned Disposition: Home Anticipated Discharge Date: Discharge Date: Expected LOS: Initial Reviewer: [email or web address] Initial Review Date: 02/26/2020 Generated: 03/07/20 2:38 pm Comments DCP- Discharge Planning Updated by [email or web address]: Kathy Estrella on 03/07/20 12:[address] SPOKE WITH AND PATIENT AT LENGTH AND THEY WANT TO STAY WITH [facility] THEY MORE THEY THINK ABOUT IT THEY ARE VERY HAPPY WITH THE CARE. I HAVE SPOKEN WITH SAVITA AT [facility] AND LET HER KNOW THAT THEY WILL BE DISCHARGING HOME TODAY. THEY ARE SETTING UP THE ADDITIONAL DME ALONG WITH THE FEEDS CM TO FOLLOW DCP- Discharge Planning Updated by [email or web address]: Kathy Estrella on 03/07/20 7:[address] SPOKE WITH SAVITA AT [facility] TO LET HER KNOW THAT HE SHOULD BE DISCHARGED TODAY. I HAVE FAXED CLINICALS TO [phone], FOR THEM TO GET HIS NUTRITION SET UP. CM TO FOLLOW AND ASSIST NEEDED DCP- Discharge Planning Updated by [email or web address]: Vaishnavi Engel on 02/27/20 4:[address] CM received a call from [employer] and stated that patient was with [facility] and [employer] was there DME provider and in order for patient to qualify for Home 02 they will need an ABG prior to discharge to qualify. CM will need to find out if patient is planning on discharging back with [facility]. DCP- Discharge Planning Updated by [email or web address]: Vaishnavi Engel on 02/26/20 7:[address] Patient Name: KENNEDY MCCRARY Admission Status: ER Accout number: [id number] Admission Date: 02-26-2020 : 1970 Admission Diagnosis: Attending: BRADLY BELL Current LOS: 1 Anticipated DC Date: Planned Disposition: Home Primary Insurance: MEDICAID [place] Discharge Planning Comments: CM met with patient to complete initial dc planning assessment. CM educated patient on the CM role and verbal consent given by patient to complete assessment. Patient lives at home with family. Patient is independent. At discharge patient plans to return home and feels this is a safe discharge. CM discussed availability of home health, rehab services, and medical equipment. Patient feel like he needs home 02 and a hospital bed upon discharge. Request [facility] for DME. Patient will have family to transport home. CM will continue to follow and will assist as needed with dc plans/needs. Automotive Porter: Vaishnavi Engel DCPIA - Discharge Planning Initial Assessment Updated by [email or web address]: Vaishnavi Engel on 02/26/20 8:45 pm * Is the patient Alert and Oriented? Yes * How many steps to enter\exit or inside your home? * PCP MEREDITH BANGURA * Pharmacy [facility] * Preadmission Environment Home with Family * ADLs Independent * Other Equipment CANE, NEBULIZER, SHOWER CHAIR * List name and contact numbers for known caregivers / representatives who currently or will assist patient after discharge: JEANNE MCCRARY - [facility] - [phone] * Verbal permission to speak to the caregivers and representatives has been obtained from the patient. Yes * Community resources currently utilized None * Additional services required to return to the preadmission environment? No * Can the patient safely return to the preadmission environment? Yes * Has this patient been hospitalized within the prior 30 days at any hospital? No Last DP export: 03/07/20 7:43 a Patient Name: KENNEDY MCCRARY Page 04933 at 1339 All edits/amendments must be made on the electronic document DICTATION DATE: 03/07/20 1338 JEWELRY DRILL OPERATOR: RAÚL 03/07/20 1338 RPT#: [id number] DC DATE: STATUS: ADM IN [facility] [address] [place] [address] END OF REPORT
--- NOTE | 2020-03-07 14:01 | NUR ---
SPOKE WITH TROY CORTES WHO STATES TO DC PICC LINE FOR DISCHARGE. WILL CALL TOAN VASCULAR ACCESS TO DC.
--- NOTE | 2020-03-07 14:48 | NUR ---
RADHA PICC LINE REMOVED BY NURSE ELECTRONIC MASKING SYSTEM OPERATOR FRANCES WITH TIP INTACT AT 42 CM. PICC FORM COMPLETED AND ON CHART. NO ISSUES. WILL CONTINUE TO MONITOR SITE.
[2020-03-07 15:07] VITALS: BP 123/76
--- NOTE | 2020-03-07 16:26 | MORECARE ---
CASE MANAGEMENT DISCHARGE SUMMARY PATIENT: KENNEDY MCCRARY UNIT: [id number] ADM DATE: 02/26/20 AGE: 49 : 66 SEX: M ROOM/BED: D.2216 AUTHOR: BRANDO STEELE PHYSICIAN: REFERRING PHYSICIAN: BRADLY BELL MD DATE OF SERVICE: 03/07/20 Discharge Plan Patient Name: KENNEDY MCCRARY [facility] [facility] 1970 Planned Disposition: Home Anticipated Discharge Date: Discharge Date: Expected LOS: Initial Reviewer: [email or web address] Initial Review Date: 02/26/2020 Generated: 03/07/20 5:25 pm Comments DCP- Discharge Planning Updated by [email or web address]: Kathy Estrella on 03/07/20 12:[address] SPOKE WITH AND PATIENT AT LENGTH AND THEY WANT TO STAY WITH [facility] THEY MORE THEY THINK ABOUT IT THEY ARE VERY HAPPY WITH THE CARE. I HAVE SPOKEN WITH SAVITA AT [facility] AND LET HER KNOW THAT THEY WILL BE DISCHARGING HOME TODAY. THEY ARE SETTING UP THE ADDITIONAL DME ALONG WITH THE FEEDS CM TO FOLLOW DCP- Discharge Planning Updated by [email or web address]: Kathy Estrella on 03/07/20 7:[address] SPOKE WITH SAVITA AT [facility] TO LET HER KNOW THAT HE SHOULD BE DISCHARGED TODAY. I HAVE FAXED CLINICALS TO [phone], FOR THEM TO GET HIS NUTRITION SET UP. CM TO FOLLOW AND ASSIST NEEDED DCP- Discharge Planning Updated by [id number]: Vaishnavi Engel on 02/27/20 4:[address] CM received a call from [employer] and stated that patient was with [facility] and [employer] was there DME provider and in order for patient to qualify for Home 02 they will need an ABG prior to discharge to qualify. CM will need to find out if patient is planning on discharging back with [facility]. DCP- Discharge Planning Updated by [email or web address]: Vaishnavi Engel on 02/26/20 7:[address] Patient Name: KENNEDY MCCRARY Admission Status: ER Accout number: [id number] Admission Date: 02-26-2020 : 1970 Admission Diagnosis: Attending: BRADLY BELL Current LOS: 1 Anticipated DC Date: Planned Disposition: Home Primary Insurance: MEDICAID [place] Discharge Planning Comments: CM met with patient to complete initial dc planning assessment. CM educated patient on the CM role and verbal consent given by patient to complete assessment. Patient lives at home with family. Patient is independent. At discharge patient plans to return home and feels this is a safe discharge. CM discussed availability of home health, rehab services, and medical equipment. Patient feel like he needs home 02 and a hospital bed upon discharge. Request [facility] for DME. Patient will have family to transport home. CM will continue to follow and will assist as needed with dc plans/needs. Cooperative Extension Agent: Vaishnavi Engel DCPIA - Discharge Planning Initial Assessment Updated by [email or web address]: Vaishnavi Engel on 02/26/20 8:45 pm * Is the patient Alert and Oriented? Yes * How many steps to enter\exit or inside your home? * PCP MEREDITH BANGURA * Pharmacy [facility] * Preadmission Environment Home with Family * ADLs Independent * Other Equipment CANE, NEBULIZER, SHOWER CHAIR * List name and contact numbers for known caregivers / representatives who currently or will assist patient after discharge: JEANNE MCCRARY - [facility] - [phone] * Verbal permission to speak to the caregivers and representatives has been obtained from the patient. Yes * Community resources currently utilized None * Additional services required to return to the preadmission environment? No * Can the patient safely return to the preadmission environment? Yes * Has this patient been hospitalized within the prior 30 days at any hospital? No Last DP export: 03/07/20 12:39 p Patient Name: KENNEDY MCCRARY Page 07676 at 1626 All edits/amendments must be made on the electronic document DICTATION DATE: 03/07/20 1625 TECHNOLOGY ADMINISTRATOR: RAÚL 03/07/20 1625 RPT#: [id number] DC DATE: STATUS: ADM IN [facility] [address] [place] [address] END OF REPORT
--- NOTE | 2020-03-07 16:49 | NUR ---
DISCHARGE EDUCATION PROVIDED BOTH WRITTEN AND VERBAL. VERBALIZED UNDERSTANDING. DENIES FURTHER QUESTIONS. PEG UNHOOOKED AND FLUSHED WITH 30ML WATER. 30 CARTONS OSMOLITE 1.0 SENT HOME WITH PATIENT. PATIENT DC HOME WITH WITH ALL BELONGINGS AND ABDOMINAL BINDER.
--- NOTE | 2020-03-07 17:05 | MORECARE ---
CASE MANAGEMENT DISCHARGE SUMMARY PATIENT: KENNEDY MCCRARY UNIT: [id number] ADM DATE: 02/26/20 AGE: 49 : 66 SEX: M ROOM/BED: D.2216 AUTHOR: [email or web address] PHYSICIAN: REFERRING PHYSICIAN: BRADLY BELL MD DATE OF SERVICE: 03/07/20 Discharge Plan Patient Name: KENNEDY MCCRARY Facility: [facility]:[place] : 1970 Planned Disposition: Home Anticipated Discharge Date: Discharge Date: Expected LOS: Initial Reviewer: [email or web address] Initial Review Date: 02/26/2020 Generated: 03/07/20 6:04 pm Comments DCP- Discharge Planning Updated by [email or web address]: Kathy Estrella on 03/07/20 3:[address] PATIENT DISCHARGING HOME WITH [facility]. WE DID SEND HIM HOME WITH 30 CANS OF FORMULA, THAT WILL GIVE [facility] TIME TO ORDER HIM FOOD AND GET IT TO HIM, HIS IS AT BEDSIDE. I CALLED AND LET LORIN KNOW WITH [facility] DCP- Discharge Planning Updated by [email or web address]: Kathy Estrella on 03/07/20 12:[address] SPOKE WITH AND PATIENT AT LENGTH AND THEY WANT TO STAY WITH [facility] THEY MORE THEY THINK ABOUT IT THEY ARE VERY HAPPY WITH THE CARE. I HAVE SPOKEN WITH SAVITA AT [facility] AND LET HER KNOW THAT THEY WILL BE DISCHARGING HOME TODAY. THEY ARE SETTING UP THE ADDITIONAL DME ALONG WITH THE FEEDS CM TO FOLLOW DCP- Discharge Planning Updated by [email or web address]: Kathy Estrella on 03/07/20 7:[address] SPOKE WITH SAVITA AT [facility] TO LET HER KNOW THAT HE SHOULD BE DISCHARGED TODAY. I HAVE FAXED CLINICALS TO [phone], FOR THEM TO GET HIS NUTRITION SET UP. CM TO FOLLOW AND ASSIST NEEDED DCP- Discharge Planning Updated by [id number]: Vaishnavi Engel on 02/27/20 4:[address] CM received a call from [employer] and stated that patient was with [facility] and [employer] was there DME provider and in order for patient to qualify for Home 02 they will need an ABG prior to discharge to qualify. CM will need to find out if patient is planning on discharging back with [facility]. DCP- Discharge Planning Updated by [email or web address]: Vaishnavi Engel on 02/26/20 7:[address] Patient Name: KENNEDY MCCRARY Admission Status: ER Accout number: [id number] Admission Date: 02-26-2020 : 1970 Admission Diagnosis: Attending: BRADLY BELL Current LOS: 1 Anticipated DC Date: Planned Disposition: Home Primary Insurance: MEDICAID [place] Discharge Planning Comments: CM met with patient to complete initial dc planning assessment. CM educated patient on the CM role and verbal consent given by patient to complete assessment. Patient lives at home with family. Patient is independent. At discharge patient plans to return home and feels this is a safe discharge. CM discussed availability of home health, rehab services, and medical equipment. Patient feel like he needs home 02 and a hospital bed upon discharge. Request [facility] for DME. Patient will have family to transport home. CM will continue to follow and will assist as needed with dc plans/needs. Die Setter: Vaishnavi Engel DCPIA - Discharge Planning Initial Assessment Updated by [email or web address]: Vaishnavi Toro on 02/26/20 8:45 pm * Is the patient Alert and Oriented? Yes * How many steps to enter\exit or inside your home? * PCP MEREDITH BANGURA * Pharmacy [facility] * Preadmission Environment Home with Family * ADLs Independent * Other Equipment CANE, NEBULIZER, SHOWER CHAIR * List name and contact numbers for known caregivers / representatives who currently or will assist patient after discharge: JEANNE MCCRARY - [facility] - [phone] * Verbal permission to speak to the caregivers and representatives has been obtained from the patient. Yes * Community resources currently utilized None * Additional services required to return to the preadmission environment? No * Can the patient safely return to the preadmission environment? Yes * Has this patient been hospitalized within the prior 30 days at any hospital? No Last DP export: 03/07/20 3:26 p Patient Name: KENNEDY MCCRARY Page 67520 at 1704 All edits/amendments must be made on the electronic document DICTATION DATE: 03/07/201703 COMPENSATION COORDINATOR: RAÚL 03/07/201703 RPT#: [id number] [place] DATE: STATUS: ADM IN [facility] [address] [place] [address] END OF REPORT
--- NOTE | 2020-03-07 17:09 | NUR ---
PATIENT DC HOME WITH WITH ALL BELONGINGS.
--- NOTE | 2020-03-08 11:54 | MORECARE ---
CASE MANAGEMENT DISCHARGE SUMMARY PATIENT: KENNEDY MCCRARY UNIT: [id number] ADM DATE: 02/26/20 AGE: 49 : 66 SEX: M ROOM/BED: D.2216 AUTHOR: IVETTE,DOC PHYSICIAN: REFERRING PHYSICIAN: BRADLY BELL MD DATE OF SERVICE: 03/08/20 Discharge Plan Patient Name: KENNEDY MCCRARY [facility] [facility] 1970 Planned Disposition: Home Anticipated Discharge Date: Discharge Date: 03/07/2020 Expected LOS: Initial Reviewer: [email or web address] Initial Review Date: 02/26/2020 Generated: 03/08/20 12:54 pm DCP- Discharge Planning Updated by [email or web address]: Kathy Estrella on 03/07/20 3:[address] PATIENT DISCHARGING HOME WITH [facility]. WE DID SEND HIM HOME WITH 30 CANS OF FORMULA, THAT WILL GIVE [facility] TIME TO ORDER HIM FOOD AND GET IT TO HIM, HIS IS AT BEDSIDE. I CALLED AND LET LORIN KNOW WITH [facility] DCP- Discharge Planning Updated by [email or web address]: Kathy Estrella on 03/07/20 12:[address] SPOKE WITH AND PATIENT AT LENGTH AND THEY WANT TO STAY WITH [facility] THEY MORE THEY THINK ABOUT IT THEY ARE VERY HAPPY WITH THE CARE. I HAVE SPOKEN WITH SAVITA AT [facility] AND LET HER KNOW THAT THEY WILL BE DISCHARGING HOME TODAY. THEY ARE SETTING UP THE ADDITIONAL DME ALONG WITH THE FEEDS CM TO FOLLOW DCP- Discharge Planning Updated by [email or web address]: Kathy Estrella on 03/07/20 7:[address] SPOKE WITH SAVITA AT [facility] TO LET HER KNOW THAT HE SHOULD BE DISCHARGED TODAY. I HAVE FAXED CLINICALS TO [phone], FOR THEM TO GET HIS NUTRITION SET UP. CM TO FOLLOW AND ASSIST NEEDED DCP- Discharge Planning Updated by [email or web address]: Vaishnavi Engel on 02/27/20 4:[address] CM received a call from [employer] and stated that patient was with [facility] and [employer] [facility] was there DME provider and in order for patient to qualify for Home 02 they will need an ABG prior to discharge to qualify. CM will need to find out if patient is planning on discharging back with [facility]. DCP- Discharge Planning Updated by [id number]: Vaishnavi Engel on 02/26/20 7:[address] Patient Name: KENNEDY MCCRARY Admission Status: ER Accout number: [id number] Admission Date: 02-26-2020 : 1970 Admission Diagnosis: Attending: BRADLY BELL Current LOS: 1 Anticipated DC Date: Planned Disposition: Home Primary Insurance: MEDICAID [place] Discharge Planning Comments: CM met with patient to complete initial dc planning assessment. CM educated patient on the CM role and verbal consent given by patient to complete assessment. Patient lives at home with family. Patient is independent. At discharge patient plans to return home and feels this is a safe discharge. CM discussed availability of home health, rehab services, and medical equipment. Patient feel like he needs home 02 and a hospital bed upon discharge. Request [facility] for DME. Patient will have family to transport home. CM will continue to follow and will assist as needed with dc plans/needs. Tile Decorator: Vaishnavi Engel DCPIA - Discharge Planning Initial Assessment Updated by [email or web address]: Vaishnavi Engel on 02/26/20 8:45 pm * Is the patient Alert and Oriented? Yes * How many steps to enter\exit or inside your home? * PCP MEREDITH BANGURA * Pharmacy [facility] * Preadmission Environment Home with Family * ADLs Independent * Other Equipment CANE, NEBULIZER, SHOWER CHAIR * List name and contact numbers for known caregivers / representatives who currently or will assist patient after discharge: JEANNE MCCRARY - [facility] - [phone] * Verbal permission to speak to the caregivers and representatives has been obtained from the patient. Yes * Community resources currently utilized None * Additional services required to return to the preadmission environment? No * Can the patient safely return to the preadmission environment? Yes * Has this patient been hospitalized within the prior 30 days at any hospital? No Last DP export: 03/07/20 4:05 p Patient Name: KENNEDY MCCRARY Page [id number] at 1154 All edits/amendments must be made on the electronic document DICTATION DATE: 03/08/20 1157 SHIPPING AND RECEIVING ASSISTANT: RAÚL 03/08/20 1154 RPT#: [id number] DC DATE:03/07/20 STATUS: DIS [facility] [address] [address] END OF REPORT
== END 2020-03-07 17:09 | disposition home health service (06) | DRG 308 ==
LOC: D.ER 20:20 → D.ICU 02-26 01:21 → D.MS 02-26 01:21 → D.ICU 03-01 11:57 → D.MS 03-04 16:10
PROVIDERS: Emergency Medicine; Family Medicine; Internal Medicine Gastroenterology; ADMIT Family Medicine; ATTEND Family Medicine
PROC: 0DH63UZ Insertion of Feeding Device into Stomach, Percutaneous Approach (ICD-10-PCS; principal; 2020-03-04 11:05)
DX: I48.20 Chronic atrial fibrillation, unspecified (principal); E43 Unspecified severe protein-calorie malnutrition; C34.90 Malignant neoplasm of unspecified part of unspecified bronchus or lung; R63.0 Anorexia; Z68.22 Body mass index [BMI] 22.0-22.9, adult; E87.6 Hypokalemia; F12.20 Cannabis dependence, uncomplicated; D47.3 Essential (hemorrhagic) thrombocythemia; E83.52 Hypercalcemia; J44.9 Chronic obstructive pulmonary disease, unspecified; F17.201 Nicotine dependence, unspecified, in remission